=== PATIENT | male | born 1955 | race Caucasian/White ===

== ENCOUNTER 2017-10-25 15:09 | Inpatient (IN) | payer OTHER ==
[~2017-10-25] VITALS: Ht 172.7 cm; Wt 100.0 kg
--- NOTE | ~2017-10-25 | O ---
[facility] [place] [address] OPERATIVE REPORT Name: SUJIT BARROS Room #: 458-P [facility] IN M.R.#: [id number] Admission: 10/25/17 Attend Phys: Yvette Rivera Discharge: 11/09/17 Date of : 51 Report #: [id number] THIS REPORT FOR: //name// CC: Freddy Webber DATE OF SERVICE: 10/29/2017 PREOPERATIVE DIAGNOSIS: Left calcaneal osteomyelitis. POSTOPERATIVE DIAGNOSIS: Left calcaneal osteomyelitis. PROCEDURE: Left below the knee amputation. SURGEON: Derrek Lilly MD. CELERY STRIPPER: Sarah Biswas. ANESTHESIA: General. ESTIMATED BLOOD LOSS: Minimal. DRAINS: One Hemovac drain was placed. TOURNIQUET TIME: One hour. DESCRIPTION OF PROCEDURE: The patient was brought to the operating room where he was placed under general anesthesia. Once under adequate general anesthesia, his left lower extremity was prepped and draped in a sterile manner. The extremity was elevated, exsanguinated and tourniquet placed to 300 mmHg. A fishmouth type incision about the mid portion of the tibia was then made. This was dissected sharply down to the bone on the tibia as well as on the fibula. Any vessels were tagged with hemostats for later ligation. The posterior tibial vessels were isolated and tagged as well. Dissection was then carried down to the bone. The tibia was then transected with a sagittal saw and beveled anteriorly. The fibula was then transected with a sagittal saw on an oblique fashion 2 cm proximal to the tibial cut. Once this was achieved, the amputation was complete. The wound was irrigated copiously. The posterior tibial vessels were ligated. The posterior tibial nerve was incised proximally in the musculature and the peroneal vessels were ligated as well with 0 silk suture. The wound was irrigated copiously and closed with #1 Vicryl in the deep fascia, 2-0 Vicryl in subcutaneous tissues and valente were used for the skin. The wounds were dressed with Xeroform, 4 x 4s, and sterile soft compressive dressing was placed. Tourniquet was let down approximately one hour. There were no [facility] [address] [place] [address] OPERATIVE REPORT Name: SUJIT COCRHAN Room #: 458-P [facility] IN [facility].#: [id number] Admission: 10/25/17 Attend Phys: Yvette Rivera Discharge: 11/09/17 Date of : 51 Report #: [id number] complications from the procedure. The patient tolerated the procedure well and went to recovery room without incident. <ELECTRONICALLY SIGNED> By: Derrek Lilly MD 11/23/17 1235 0838 0855 Derrek Lilly MD /nt
--- NOTE | ~2017-10-25 | 2DMMODE ---
[facility] [address] [place] [address] 2 D/M-MODE ECHOCARDIOGRAM Name: XENIASamiSUJIT TOVAR Room #: 458-P ADM IN M.R.#: [id number] Admission: 10/25/17 Attend Phys: Yvette Whitehead Discharge: Date of : 51 Date of Service: 10/28/17 1639 Report #: [id number] THIS REPORT FOR: //name// APPROVED REPORT Study performed: 10/28/2017 15:26:51 EXAM: Comprehensive 2D, Doppler, and color-flow Echocardiogram Patient Location: Bedside Room #: [facility] Status: routine BSA: 2.17 HR: 78 bpm BP: 137/75 mmHg Rhythm: NSR Other Information Study Quality: Adequate Technically limited study due to body habitus. Indications Pre-Op. Hx: CABG, [place], stent, CVA, DM. Echo Enhancing Agent Indication: Endocardial border delineation Agent(s) / Amount(s) Used: Optison 4 cc 2D Dimensions RVDd: 36.60 mm IVSd: 10.37 (7-11mm) LVOT Diam: 21.74 (18-24mm) LVDd: 54.20 mm PWd: 10.39 (7-11mm) Ascending Ao: 37.08 (22-36mm) LVDs: 41.37 (25-40mm) Aortic Root: 34.97 mm Volumes Left Atrial Volume (Systole) Single Plane 4CH: 58.08 mL Single Plane 2CH: 39.70 mL LA ESV Index: 23.00 mL/m2 Aortic Valve AoV Peak Chintan.: 1.25 m/s AO Peak Gr.: 6.25 mmHg LVOT Max P.59 mmHg LVOT Max V: 1.07 m/s JOSÉ Vmax: 3.18 cm2 [facility] [place] [address] 2 D/M-MODE ECHOCARDIOGRAM Name: SUJIT BARROS LA Room #: 458-P [facility] IN M.R.#: [id number] Admission: 10/25/17 Attend Phys: Yvette Whitehead Discharge: Date of : 51 Date of Service: 10/28/17 1639 Report #: [id number] Mitral Valve E/A Ratio: 0.8 MV Decel. Time: 251.33 ms MV E Max Chintan.: 0.91 m/s MV A Chintan.: 1.11 m/s MV PHT: 72.89 ms IVRT: 72.66 ms Pulmonary Valve PV Peak Chintan.: 1.00 m/s PV Peak Gr.: 4.03 mmHg Pulmonary Vein P Vein S: 0.53 m/s P Vein D: 0.56 m/s P Vein S/D Ratio: 0.95 Tricuspid Valve TR Peak Chintan.: 2.59 m/s TR Peak Gr.: 26.76 mmHg Left Ventricle The left ventricle is normal size. Regional wall motion abnormalities are noted. There is normal left ventricular wall thickness. Left ventricular systolic function is mildly decreased. LVEF is 45%. Mild diastolic dysfunction is present (impaired relaxation pattern). Right Ventricle The right ventricle is normal size. The right ventricular systolic function is normal. Atria The left atrium size is normal. The right atrium size is normal. Aortic Valve The aortic valve is normal in structure. No aortic regurgitation is present. There is no aortic valvular stenosis. Mitral Valve The mitral valve is normal in structure. Trace mitral regurgitation. Tricuspid Valve The tricuspid valve is normal in structure. Trace tricuspid [facility] [address] [place] [address] 2 D/M-MODE ECHOCARDIOGRAM Name: XENIASamiSUJIT Room #: 458-P [facility] IN M.R.#: [id number] Admission: 10/25/17 Attend Phys: Yvette Whitehead Discharge: Date of : 51 Date of Service: 10/28/17 1639 Report #: [id number] regurgitation. Estimated PAP is 27mmHg plus the right atrial pressure. Pulmonic Valve Pulmonic valve is not well visualized. Great Vessels The aortic root is normal in size. The ascending aorta is normal in size. IVC is not well visualized. Pericardium There is no pericardial effusion. <Conclusion> The left ventricle is normal size. There is normal left ventricular wall thickness. Left ventricular systolic function is mildly decreased. Mild diastolic dysfunction is present (impaired relaxation pattern). The right ventricle is normal size. The left atrium size is normal. The aortic valve is normal in structure. Trace mitral regurgitation. There is no aortic valvular stenosis. Trace tricuspid regurgitation. Estimated PAP is 27mmHg plus the right atrial pressure. <ELECTRONICALLY SIGNED> By: Crow Rowe MD 10/28/17 1639 1639 1639 Crow Rowe MD /INF
--- NOTE | ~2017-10-25 | HC ---
[facility] [place] [address] CONSULTATION Name: SUJIT BARROS Room #: 458-P ADM IN M.R.#: [id number] Admission: 10/25/17 Attend Phys: Yvette Rivera Discharge: Date of : 51 Report #: [id number] THIS REPORT FOR: //name// CC: Freddy Webber DATE OF SERVICE: 10/27/2017 CHIEF COMPLAINT: Pressure ulceration to the left heel. HISTORY OF PRESENT ILLNESS: This is a 61-year-old male patient, with a history of diabetes mellitus, who lives at a local senior care, has developed an ulceration on his left posterior heel. It has progressed and become infected. He has been admitted for further evaluation and treatment. I have been asked to see him with regard to wound care. This is the first time I have had a chance to evaluate him. PAST MEDICAL HISTORY: Positive for diabetes mellitus, obesity, previous hernia surgery, previous myocardial infarction. ALLERGIES: None. MEDICATIONS: Include carvedilol, Lipitor, vitamin C, Calmoseptine ointment, Lasix, gentamicin, GlycoLax, Xalatan, lidocaine, Ativan, Mag-Ox, Neurontin, NovoLog, OxyIR, Santyl ointment, senna, Zoloft, Ultram, Desyrel. SOCIAL HISTORY: Negative for alcohol or tobacco use. FAMILY HISTORY: Noncontributory. REVIEW OF SYSTEMS: CONSTITUTIONAL: The patient denies fever, chills or weight loss. NEUROLOGICAL: The patient denies focal weakness. ENT: The patient denies earache, nasal drainage or sore throat. CARDIOVASCULAR: The patient denies chest pain, palpitation or diaphoresis. PULMONARY: The patient denies cough or shortness of breath. GASTROINTESTINAL: The patient denies nausea, vomiting or abdominal pain. ORTHOPEDIC: The patient is aware of the ulceration on his left foot. Other systems in a 14-point review of systems are negative. PHYSICAL EXAMINATION: VITAL SIGNS: At this time includes temperature 37.1, pulse rate 87, respiratory rate of 18, blood pressure 112/65. GENERAL: This is a chronically ill-appearing male patient who appears to be older than his stated age. [facility] [address] [place] [address] CONSULTATION Name: SUJIT BARROS Room #: 458-P [facility] IN M.R.#: [id number] Admission: 10/25/17 Attend Phys: Yvette Rivera Discharge: Date of : 51 Report #: [id number] HEENT: Head normocephalic. Extraocular movements are intact. Nose and throat are clear. NECK: Supple. LUNGS: Clear. HEART: Regular. ABDOMEN: Soft. Bowel sounds present. EXTREMITIES: Demonstrate diminished distal pulses, although he does have reasonably good capillary refill at right foot and ankle. SKIN: Shows intact with a few dry areas. The left heel is examined. There is a very large defect with a large amount of eschar and odor and drainage present. There is very little soft tissue palpable beneath the eschar between that and the calcaneus. LABORATORY DATA: Would include an MRI, which demonstrates slight irregularity to the posterior lateral calcaneus along its superior border at the Achilles insertion. There is also partial tearing of the lateral fibers of the Achilles involving the distal 1.5 cm. This area of erosive change along the calcaneus, abnormal signal extends through the peripheral aspect of the posterior third of the calcaneus felt to represent osteomyelitis correlating with the plain film findings. Soft tissue edema extends throughout the ankle joint and foot with some myositis through the musculature. No fluid collection is seen to suggest abscess. X-ray evaluation of the foot demonstrates lucency and slight irregularity to the cortex along the calcaneus concerning for underlying osteomyelitis, degenerative changes and atherosclerotic calcifications. Lower extremity arterial Doppler demonstrates triphasic waveforms throughout the left lower extremity arterial system. There is minimal elevation of velocity in the proximal right superficial femoral artery without significant stenosis. A sebaceous cyst in the right groin is noted. The upper and mid right lower extremity arterial waveforms appear normal. In the proximal right posterior tibial artery extending inferiorly along the dorsalis pedis area, there is diminished waveforms with collaterals consistent with underlying atherosclerotic disease and more chronic sequela of stenosis. Blood flow is demonstrated in both the posterior tibial and dorsalis pedis arteries. White blood cell count 7.1 with a hemoglobin of 8.8, hematocrit of 25.9, platelet count 303,000. Sodium 140, potassium 3.9, BUN 10, creatinine 1.2 and glucose 74. CRP is markedly elevated at 92. Albumin is 2.1. CLINICAL IMPRESSION: 1. Unstageable pressure ulcer, left heel with wound infection. 2. Calcaneal osteomyelitis. 3. Diabetes mellitus. 4. Mild to moderate peripheral arterial disease. 5. Moderate protein calorie malnutrition. RECOMMENDATIONs: At this point in time, the patient has been examined thoroughly at the bedside. I have reviewed other physician's reports including [facility] [address] [place] [address] CONSULTATION Name: SUJIT BARROS Room #: 458-P ADM IN M.R.#: [id number] Admission: 10/25/17 Attend Phys: Yvette Rivera Discharge: Date of : 51 Report #: [id number] recommendations from orthopedic surgery for below-knee amputation. I have advised him of the same. I think it is highly unlikely that we would be able to overcome this large soft tissue defect as well as the underlying osteomyelitis and preserve the function of his foot. I think ultimately he would be better served and reach a healthier point much quicker and be more functionally ambulatory with the below-knee amputation rather than go through partial calcanectomy. I have discussed with him alternatives to below knee amputation, which I do not recommend, which would include surgical bony debridements and 6-8 weeks of intravenous antibiotics. I was asked by Dr. Webber regarding the possibility of hyperbaric oxygen therapy. The hyperbaric oxygen therapy has been utilized in cases of chronic and refractory osteomyelitis that would be osteomyelitis that has been previously treated with 8 weeks of intravenous antibiotics and surgical bony debridement and then has still failed to resolve. This would be a consideration for down the line, although honestly, I do not feel that this would result in limb preservation. The patient will take current recommendations under advisement and discuss further with his family. We will recommend a Dakin's moist gauze dressing at this time. I do not feel that the local bedside debridement would add any meaningful impact at this point in time. <ELECTRONICALLY SIGNED> By: Mark Bravo MD 10/28/17 1402 49 0007 Mark Bravo MD /nt
--- NOTE | ~2017-10-25 | HC ---
[facility] [place] [address] CONSULTATION Name: SUJIT BARROS Room #: 458-P ADM IN M.R.#: [id number] Admission: 10/25/17 Attend Phys: Yvette Rivera Discharge: Date of : 51 Report #: [id number] THIS REPORT FOR: //name// CC: Freddy Webber CHIEF COMPLAINT: Left heel wound. HISTORY OF PRESENT ILLNESS: This is a 61-year-old gentleman with a history of a left heel wound ongoing over the past 4 months. He was admitted with this heel wound. He has a history of diabetes type 2, on Mcmanus. He is scheduled to have an MRI. He has history of obesity, diabetes, history of hernia surgery, PA in 2010, and a stent in 2001. ALLERGIES: None. MEDICATIONS: Noted on the APR. SOCIAL HISTORY: Negative for tobacco or alcohol use. REVIEW OF SYSTEMS: As above. PHYSICAL EXAMINATION: VITAL SIGNS: Pulse is 84, respiratory rate is 18, blood pressure is 115/57. GENERAL: Awake, alert, cooperative. EXTREMITIES: Examination of the left foot notes a grade 4 ulcer to the left posterior calcaneus with some slight erythema surrounding it. He holds his foot in plantar flexion. He has good capillary refill distally. DATA: Laboratory studies note a white count of 8.8, hemoglobin is 10. Sed rate is 80. X-rays of the foot are reviewed noting the defect in the soft tissue posteriorly. IMPRESSION: Likely calcaneal osteomyelitis. PLAN: He is obtaining an MRI today. I did discuss with him the possibility for a zzips-yjg-xlnw amputation, which he is not wishing to proceed with. We will follow along with you. Thank you for allowing me to participate in the care of this patient. <ELECTRONICALLY SIGNED> By: Derrek Lilly MD 10/29/17 0835 0733 0745 Derrek Lilly MD /nt
--- NOTE | ~2017-10-25 | PATH ---
[facility] [address] [address] [place] [address] PATHOLOGY RPT PROCEDURE Name: FIORELLASUJIT LEVYERT Room #: 458-P ADM IN M.R.#: [id number] Admission: 10/25/17 Date of : 51 Discharge: Report #: [id number] Path Case #: [id number] [facility] Accession Number: [id number] . 01 Material submitted: . LEFT BELOW KNEE AMPUTATION . 01 Clinical history: . Sgggg-dcc-scgz amputation . 02 Diagnosis: Leg, left, below knee amputation: - Ulceration, gangrenous necrosis and marked acute inflammation. - Vessels within subcutaneous tissues showing complete occlusion. - Anterior tibial vasculature showing calcific atherosclerosis with luminal narrowing. - Posterior tibial vessel showing minimal atherosclerosis. - Skin margin viable and unremarkable. - Bone margins grossly viable. (IUV:pit 11/02/2017) QTP/11/02/2017 . 02 Electronically signed: . Marircuz Marquez MD, Pathologist NPI- [id number] . 01 Gross description: . The specimen is received fresh, labeled "Sujit Barros, left below-knee amputation". Received is a left jihgk-yks-mobd amputation measuring 21.5 cm from heel to toe, 15.0 cm from heel to skin margin, 25.6 cm from heel to tibial margin, and 30.1 cm from heel to fibular margin. All five toes are present. The nails are light archibald and flaky to severely thickened in appearance. The skin and soft tissue margin appears viable. Near the skin margin, there is a poorly circumscribed, irregular in contour and pale archibald lesion measuring 0.5 x 0.4 cm. Overlying the calcaneus, there is a poorly circumscribed, irregular in contour, ulcerated to necrotic-appearing lesion measuring 7.5 x 6.6 cm, which is 8.6 cm from the skin margin. Sectioning through the underlying soft tissue reveals yellow-archibald to necrotic dusky wei-brown cut surfaces. On the medial/dorsal aspect of the foot, there is a secondary lesion which is poorly circumscribed, irregular in contour, partially crusted and pale archibald to light brown measuring 1.2 x 1.0 cm. Sectioning reveals a slight amount of necrosis in the underlying soft tissue. The remainder the epidermis is pale archibald and slightly flaky in appearance. The anterior and posterior tibial vasculatures display patent lumens, with a slight amount of calcification present in the anterior tibial vasculature. The specimen is submitted representatively as follows: [place] [address] PATHOLOGY RPT PROCEDURE Name: SUJIT BARROS Room #: 458-P ADM IN M.R.#: [id number] Admission: 10/25/17 Date of : 51 Discharge: Report #: [id number] Path Case #: [id number] . A1 skin and soft tissue margin, to include the aforementioned lesion A2-A3 scheduling representative sections of lesion overlying calcaneus down to the bone A4 entire lesion on medial/dorsal aspect of foot A5 anterior tibial vasculature A6 posterior tibial vasculature. (CAA; 11/01/2017) QAC/QAC . 02 Pathologist provided ICD-10: I70.262, I70.249 . 02 CPT . 519886 Specimen Comment: A courtesy copy of this report has been sent to Specimen Comment: [phone], , . Specimen Comment: Report sent to , and Performed at: [address] [facility], [place] [id number] MD Francesco Vilchis MD Phone: [phone] Performed at: [address] [facility] [id number] MD Maricruz Marquez MD Phone: [phone]
--- NOTE | ~2017-10-25 | EKG ---
[address] [place] [address] ELECTROCARDIOGRAM REPORT Name: XENIASamiSUJIT TOVAR Room #: 458-P ADM IN M.R.#: [id number] Admission: 10/25/17 Attend Phys: Yvette Rivera Discharge: Date of : 51 Report #: [id number] THIS REPORT FOR: //name// [facility] Test Date: 2017-10-28 Test Time: 15:28:06 Pat Name: SUJIT BARROS Department: Room: 458 Gender: M Senior Bi Developer: Radha ABURTO : 1955 Requested By: Moon Barkley Order Number: [id number] MD: Doni Stein Measurements Intervals [place] Rate: 79 P: 44 MS: 181 QRS: -1 QRSD: 102 T: 44 QT: 417 QTc: 479 Interpretive Statements Sinus rhythm Low voltage, extremity leads No previous ECG available for comparison Electronically Signed On 11-01-2017 17:04:12 CDT by Doni Stein [email or web address] <ELECTRONICALLY SIGNED> By: Doni Stein MD 11/01/17 1704 1528 152 Doni Stein MD /IRON
[~2017-10-25 15:09] MED LIST: ADULT LOW DOSE81 MG PO; ALDACTONE50 MG PO; AMBIEN 5 MG TABL5 M1; AMBIEN 5 MG TABL5 M1 PO; BACTRIM DS TAB1 EACH PO; BRILINTA90 MG PO; CARVEDILOL12.5 MG PO; CARVEDILOL6.25 MG PO; COREG PO; CRESTOR10 MG PO; CRESTOR20 MG PO; EFFIENT10 MG PO; GABAPENTIN100 MG PO; GLUCOPHAGE1000 MG PO; HUMALOG100 UNIT/1; HYDROCODONE-AP1 EAC6 PO; LEVEMIR SUBQ; LISINOPRIL2.5 MG PO; LYRICA 50 MG50 MG; MEDROLDOSEPACK PO; NITROGLYCERIN0.4 MG; NITROSTAT0.3 MG SL; NO MEDS; NORCO 5-325 TA1 EACH PO; PAIN & FEVER325 MG PO; SIMVASTATIN40 MG PO; TOUJEO SOL300 UNIT/1; TRAMADOL 50 MG50 MG; VICODIN 5-5001 EACH PO; XANAX 1 MG TABLE1 MG PO
[2017-10-25 17:48] LABS: ABSOLUTE NEUTROPHILS 6.4 thou/uL (1.4-8.2); BASOPHILS 1.4 % (0.0-2.0); EOSINOPHILS 5.8 % (0.0-3.0); LYMPHOCYTES 12.8 % (24.0-44.0); MCH 26.9 pg (26.0-34.0); MCHC 33.3 g/dL (28.0-37.0); MCV 80.8 fL (80.0-100.0); MONOCYTES 7.7 % (1.0-8.0); PLATELET COUNT 332 thou/uL (150-400); POLYS 72.3 % (36.0-66.0); RBC 3.72 mil/uL (4.50-6.00); RDW 16.6 % (10.5-14.5); WBC 8.8 thou/uL (4.0-11.0)
[2017-10-25 17:56] LABS: CALCIUM 9.5 mg/dL (8.5-10.1); CREATININE 1.3 mg/dL (0.7-1.3); POTASSIUM 4.1 mmol/L (3.5-5.1)
[2017-10-25] MEDS ORDERED: LIPITOR80 MG PO (18:21)
[2017-10-25] MEDS ORDERED: VITAMINC500 PO (18:21)
[2017-10-25] MEDS ORDERED: BACTRIM DS TAB1 EACH PO (18:22)
[2017-10-25] MEDS ORDERED: CALMOSEPTINE O3.5 GM TOP (18:23)
[2017-10-25] MEDS ORDERED: LASIX 20 MG TAB20 MG PO (18:24)
[2017-10-25] MEDS ORDERED: GENTAMICIN 0.1%15 G2 TOP (18:25)
[2017-10-25] MEDS ORDERED: GLYCOLAX119 GM PO (18:26)
[2017-10-25] MEDS ORDERED: XALATAN2.5 ML OPHTHALMIC (18:26)
[2017-10-25] MEDS ORDERED: LMX 530 GM TOP (18:27)
[2017-10-25] MEDS ORDERED: UNICOMPLEX M TA1 TA1 PO (18:28)
[2017-10-25] MEDS ORDERED: ATIVAN0.5 MG PO (18:28)
[2017-10-25] MEDS ORDERED: MAGOX 400400 MG PO (18:28)
[2017-10-25] MEDS ORDERED: NEURONTIN 300300 M1 PO (18:29)
[2017-10-25] MEDS ORDERED: NOVOLOG100 UNIT/1 SUBQ (18:30)
[2017-10-25] MEDS ORDERED: OMEPRAZOLE20 M2 PO (18:30)
[2017-10-25] MEDS ORDERED: SANTYL OINTMENT30 G1 TOP (18:31)
[2017-10-25] MEDS ORDERED: OXYCODONE HCL 55 MG PO (18:31)
[2017-10-25] MEDS ORDERED: SELSUN BLUE325 M1 TOP (18:34)
[2017-10-25] MEDS ORDERED: SENNA8.6 MG PO (18:35)
[2017-10-25] MEDS ORDERED: SERTRALINE HCL50 MG PO (18:35)
[2017-10-25] MEDS ORDERED: TRAMADOL 50 MG50 MG PO (18:35)
[2017-10-25] MEDS ORDERED: TRAZODONE HCL50 MG PO (18:36)
[2017-10-25] MEDS ORDERED: VITAMIN D5000 UNIT PO (18:36)
[2017-10-25 22:10] VITALS: BP 118/63
[2017-10-25 22:45] VITALS: BP 133/72
[2017-10-25] MEDS ORDERED: CALMOSEPTINE OI71 GM TOP (23:18)
[2017-10-26 04:18] VITALS: BP 106/57
[2017-10-26 05:09] LABS: GLYCOHEMOGLOBIN (HGB A1C) 5.4 % (4.8-5.6)
[2017-10-26 05:42] LABS: HEMATOCRIT 25.8 % (42.0-52.0); HEMOGLOBIN 8.7 gm/dL (14.0-18.0); MCH 26.9 pg (26.0-34.0); MCHC 33.6 g/dL (28.0-37.0); MCV 80.2 fL (80.0-100.0); RBC 3.22 mil/uL (4.50-6.00); RDW 16.5 % (10.5-14.5); WBC 6.3 thou/uL (4.0-11.0)
[2017-10-26 05:52] LABS: CALCIUM 8.7 mg/dL (8.5-10.1); CREATININE 1.2 mg/dL (0.7-1.3); PHOSPHORUS 3.6 mg/dL (2.5-4.9); POTASSIUM 3.8 mmol/L (3.5-5.1)
[2017-10-26 08:00] VITALS: BP 99/57
[2017-10-26 10:29] LABS: ABSOLUTE RETIC COUNT 0.0714 10^6/uL; OBSERVED RETIC COUNT 2.18 % (0.6-2.6)
[2017-10-26 12:08] LABS: % SATURATION 20 % (20-39); IRON 19 ug/dL (65-175); TIBC 96 ug/dL (250-450)
[2017-10-26 15:54] VITALS: BP 124/65
[2017-10-26 20:00] VITALS: BP 105/50
[2017-10-27 04:00] VITALS: BP 124/58
[2017-10-27 05:55] LABS: ALBUMIN 2.1 g/dL (3.4-5.0); CALCIUM 8.8 mg/dL (8.5-10.1); CREATININE 1.2 mg/dL (0.7-1.3); PHOSPHORUS 3.3 mg/dL (2.5-4.9); POTASSIUM 3.9 mmol/L (3.5-5.1)
[2017-10-27 05:57] LABS: HEMATOCRIT 25.9 % (42.0-52.0); HEMOGLOBIN 8.8 gm/dL (14.0-18.0); MCH 27.2 pg (26.0-34.0); MCHC 34.1 g/dL (28.0-37.0); MCV 79.8 fL (80.0-100.0); RBC 3.25 mil/uL (4.50-6.00); RDW 16.8 % (10.5-14.5); WBC 7.5 thou/uL (4.0-11.0)
[2017-10-27 07:18] VITALS: BP 127/60
[2017-10-27 15:05] VITALS: BP 139/63
[2017-10-27 19:03] VITALS: BP 125/65
[2017-10-28 04:14] VITALS: BP 148/89
[2017-10-28 08:00] VITALS: BP 126/64
[2017-10-28 15:06] VITALS: BP 137/75
[2017-10-28 19:10] VITALS: BP 133/62
[2017-10-29 03:40] VITALS: BP 116/55
[2017-10-29 06:12] LABS: HEMATOCRIT 26.4 % (42.0-52.0); HEMOGLOBIN 9.1 gm/dL (14.0-18.0); MCH 27.7 pg (26.0-34.0); MCHC 34.6 g/dL (28.0-37.0); MCV 80.2 fL (80.0-100.0); RBC 3.29 mil/uL (4.50-6.00); RDW 16.5 % (10.5-14.5); WBC 8.1 thou/uL (4.0-11.0)
[2017-10-29 06:19] LABS: ALBUMIN 2.2 g/dL (3.4-5.0); PHOSPHORUS 3.2 mg/dL (2.5-4.9); POTASSIUM 3.6 mmol/L (3.5-5.1)
[2017-10-29 19:25] VITALS: BP 106/58
[2017-10-30 04:04] VITALS: BP 109/54
[2017-10-30 04:41] LABS: HEMATOCRIT 25.4 % (42.0-52.0); HEMOGLOBIN 8.3 gm/dL (14.0-18.0)
[2017-10-30 04:48] LABS: POTASSIUM 3.8 mmol/L (3.5-5.1)
[2017-10-30 11:11] VITALS: BP 103/53
[2017-10-30 19:58] VITALS: BP 106/63
[2017-10-31 04:05] VITALS: BP 120/57
[2017-10-31 05:39] LABS: HEMATOCRIT 25.2 % (42.0-52.0); HEMOGLOBIN 8.3 gm/dL (14.0-18.0); MCH 26.8 pg (26.0-34.0); MCHC 32.9 g/dL (28.0-37.0); MCV 81.4 fL (80.0-100.0); RBC 3.09 mil/uL (4.50-6.00); RDW 16.6 % (10.5-14.5)
[2017-10-31 05:51] LABS: CALCIUM 8.7 mg/dL (8.5-10.1); POTASSIUM 3.6 mmol/L (3.5-5.1)
[2017-10-31 08:00] VITALS: BP 123/72
[2017-10-31 16:14] VITALS: BP 118/65
[2017-10-31 19:04] VITALS: BP 100/54
[2017-11-01 03:37] VITALS: BP 114/57
[2017-11-01 04:46] LABS: HEMATOCRIT 24.2 % (42.0-52.0); HEMOGLOBIN 7.9 gm/dL (14.0-18.0); MCH 26.4 pg (26.0-34.0); MCHC 32.6 g/dL (28.0-37.0); RBC 2.98 mil/uL (4.50-6.00); RDW 16.8 % (10.5-14.5); WBC 7.5 thou/uL (4.0-11.0)
[2017-11-01 04:54] LABS: ALBUMIN 1.8 g/dL (3.4-5.0); CALCIUM 8.8 mg/dL (8.5-10.1); CREATININE 1.1 mg/dL (0.7-1.3); POTASSIUM 3.7 mmol/L (3.5-5.1); TOTAL BILIRUBIN 0.3 mg/dL (<0.1-1.0); TOTAL PROTEIN 5.8 g/dL (6.4-8.2)
[2017-11-01 08:00] VITALS: BP 120/59
[2017-11-01] MEDS ORDERED: CARVEDILOL12.5 MG PO (14:39)
[2017-11-01 15:56] VITALS: BP 120/63
[2017-11-01 19:42] VITALS: BP 139/68
[2017-11-02 04:51] VITALS: BP 113/67
[2017-11-02 07:33] VITALS: BP 132/70
[2017-11-02 15:31] VITALS: BP 98/62
[2017-11-02 20:43] VITALS: BP 104/58
[2017-11-03 05:04] VITALS: BP 104/71
[2017-11-03 07:40] VITALS: BP 118/73
[2017-11-03 15:13] VITALS: BP 101/54
[2017-11-03 19:25] VITALS: BP 100/49
[2017-11-04 04:36] VITALS: BP 107/53
[2017-11-04 05:20] LABS: HEMATOCRIT 23.8 % (42.0-52.0); MCH 27.3 pg (26.0-34.0); MCHC 33.7 g/dL (28.0-37.0); MCV 81.2 fL (80.0-100.0); RBC 2.94 mil/uL (4.50-6.00); RDW 17.2 % (10.5-14.5); WBC 6.6 thou/uL (4.0-11.0)
[2017-11-04 05:37] LABS: ALBUMIN 1.9 g/dL (3.4-5.0); CALCIUM 8.8 mg/dL (8.5-10.1); CREATININE 1.1 mg/dL (0.7-1.3); MAGNESIUM 1.7 mg/dL (1.8-2.4); POTASSIUM 3.6 mmol/L (3.5-5.1); TOTAL BILIRUBIN 0.3 mg/dL (<0.1-1.0); TOTAL PROTEIN 6.1 g/dL (6.4-8.2)
[2017-11-04 07:26] VITALS: BP 115/66
[2017-11-04 15:46] VITALS: BP 116/55
[2017-11-04 16:12] VITALS: BP 116/55
[2017-11-04 19:16] VITALS: BP 125/55
[2017-11-05 06:08] VITALS: BP 125/55
[2017-11-05 08:08] VITALS: BP 127/74
[2017-11-05 19:50] VITALS: BP 103/52
[2017-11-05 23:39] VITALS: BP 103/52
[2017-11-06 04:15] VITALS: BP 100/52
[2017-11-06 07:30] VITALS: BP 132/61
[2017-11-06 19:33] VITALS: BP 133/74
[2017-11-06 23:43] VITALS: BP 133/74
[2017-11-07 08:00] VITALS: BP 111/60
[2017-11-07 17:00] VITALS: BP 144/89
[2017-11-07 19:15] VITALS: BP 115/63
[2017-11-08 08:00] VITALS: BP 122/62
[2017-11-08] MEDS ORDERED: LANTUS100 UNIT/M SUBQ (09:53)
[2017-11-08 19:22] VITALS: BP 95/56
[2017-11-09 07:36] VITALS: BP 113/54
== END 2017-11-09 13:57 | DRG 853 ==
LOC: ER 15:09 → EROBS 18:25 → 4W 18:25
PROVIDERS: Hospitalist; Nurse Practitioner Family; Orthopaedic Surgery Foot and Ankle Surgery; Physician Assistant
PROC: 0Y6J0Z1 Detachment at Left Lower Leg, High, Open Approach (ICD-10-PCS; principal; 2017-10-29)
DX: A41.9 Sepsis, unspecified organism (principal); E43 Unspecified severe protein-calorie malnutrition; M86.8X8 Other osteomyelitis, other site; L03.90 Cellulitis, unspecified; E11.69 Type 2 diabetes mellitus with other specified complication; D64.9 Anemia, unspecified; F32.9 Major depressive disorder, single episode, unspecified; E78.5 Hyperlipidemia, unspecified; I10 Essential (primary) hypertension; I25.10 Atherosclerotic heart disease of native coronary artery without angina pectoris; S20.20XA Contusion of thorax, unspecified, initial encounter; X58.XXXA Exposure to other specified factors, initial encounter; E11.51 Type 2 diabetes mellitus with diabetic peripheral angiopathy without gangrene; L89.620 Pressure ulcer of left heel, unstageable; E11.621 Type 2 diabetes mellitus with foot ulcer; M53.3 Sacrococcygeal disorders, not elsewhere classified; K59.00 Constipation, unspecified; L98.9 Disorder of the skin and subcutaneous tissue, unspecified; E83.42 Hypomagnesemia; R07.9 Chest pain, unspecified; E66.9 Obesity, unspecified; Z95.5 Presence of coronary angioplasty implant and graft; Z79.82 Long term (current) use of aspirin; Z88.5 Allergy status to narcotic agent; Z95.1 Presence of aortocoronary bypass graft; Z86.73 Personal history of transient ischemic attack (TIA), and cerebral infarction without residual deficits; Y93.89 Activity, other specified; Z79.84 Long term (current) use of oral hypoglycemic drugs; Z79.899 Other long term (current) drug therapy; I25.2 Old myocardial infarction; Y92.89 Other specified places as the place of occurrence of the external cause; Y99.8 Other external cause status; Z68.33 Body mass index [BMI] 33.0-33.9, adult
CPT/HCPCS: 10040; 27000; 50010; 50101; 50386; 51412; 53000; 56524; 56525; 57091; 57180; 62110; 62900; 70005

== ENCOUNTER 2017-12-28 11:45 | Inpatient (IN) | payer OTHER ==
[~2017-12-28] VITALS: Ht 175.3 cm; Wt 98.9 kg
--- NOTE | ~2017-12-28 | O ---
[facility] [place] [address] OPERATIVE REPORT Name: SUJIT BARROS Room #: 419-P ADM IN M.R.#: [id number] Admission: 12/28/17 Attend Phys: Al Draper MD Discharge: Date of : 51 Report #: [id number] THIS REPORT FOR: //name// CC: Al Chinchilla DATE OF SERVICE: 12/29/2017 SURGEON: Rambo Luna MD MIXER WET POUR: None. PREOPERATIVE DIAGNOSES: 1. Unstageable right heel decubitus ulcer. 2. Right groin abscess. POSTOPERATIVE DIAGNOSES: 1. Stage 4 right heel decubitus ulcer. 2. Right groin abscess. 3. Right groin mass. PROCEDURES: 1. Excisional and ultrasonic debridement of right heel decubitus ulcer including skin, subcutaneous tissue, and muscle (5 x 5 cm equals 25 cm2). 2. Incision and drainage of right groin abscess. 3. Excision of right groin subcutaneous mass. ANESTHESIA: General endotracheal anesthesia and local anesthetic. ESTIMATED BLOOD LOSS: 25 mL. SPECIMEN: Right groin mass, right heel tissue. COMPLICATIONS: None appreciated. INDICATIONS FOR PROCEDURE: This is a 62-year-old male patient with history of diabetes mellitus and peripheral vascular disease. He was admitted with worsening right groin pain as well as fever and chills. CT of the pelvis showed a large right groin fluid collection containing gas consistent with an abscess, possible liquified hematoma. In addition, the patient was found to have a right heel decubitus ulcer with associated pain. He presents today for incision and drainage of the right groin abscess as well as debridement of his unstageable right heel decubitus ulcer. OPERATIVE FINDINGS: The right groin abscess contained a moderate amount of purulence. Within the abscess was a cystic structure, the wall of which was [facility] [address] [place] [address] OPERATIVE REPORT Name: SUJIT BARROS Room #: 419-P [facility] IN [facility].#: [id number] Admission: 12/28/17 Attend Phys: Al Draper MD Discharge: Date of : 53 Report #: [id number] excised. Hemoclips were seen deep in the wound, presumably from his previous open inguinal herniorrhaphy. A mesh was not encountered. The patient's right heel wound was 5 cm x 5 cm and extended down to the level of the bone, but did not seem to include bone. Thus, skin, subcutaneous tissue, and muscle was excised. Debridement was carried down to healthy bleeding tissue. DESCRIPTION OF PROCEDURE IN DETAIL: After the risks, benefits and expectations of the operation were discussed in detail with the patient, informed consent was obtained. The patient was identified in the preoperative holding area. He has been receiving scheduled IV antibiotics. He was taken to the operating room and he was placed in the supine position. SCDs were placed on the patient's bilateral lower extremities and pneumatic compression was initiated. The patient was given IV sedation and he was intubated without incident. The right groin and right heel were prepped and draped in a standard sterile fashion. A time-out was performed to identify the correct patient and procedure. Local anesthetic was infiltrated into the skin and subcutaneous tissue in the right groin following the previous incisional scar. A sharp #15 blade scalpel was used to make the incision through the skin. Purulence was already seen draining from the wound. The wound was suctioned and cultures were taken to be sent for aerobes, anaerobes and fungus. The wound was then opened further approximately 6-7 cm in length. While I digitally examined the wound, a cystic structure/cyst wall was present and this was excised to be sent for specimen. No remaining cyst wall appeared to be located within the wound. Hemoclips were present within the wound and these were left in place. Bleeding points were made hemostatic with electrocautery. The wound was then copiously irrigated and suctioned. The Misonix ultrasonic debridement device was used to debride the entire wound cavity. After ensuring hemostasis, the wound was packed with 1:1 Betadine to normal saline on Kerlix. Sterile dressings were applied. The right heel decubitus ulcer was debrided next. Local anesthetic was infiltrated into the skin and subcutaneous tissue. A sharp #10 blade scalpel was used to make an incision around the dry necrotic area. Electrocautery was used to dissect the nonviable tissue away. Dissection was carried down to the calcaneus bone. The outer table was intact and there was no evidence for osteomyelitis grossly. Bleeding points were made hemostatic with electrocautery. The Misonix ultrasonic debridement device was then used to mechanically debride the entire surface area of the wound with good cavitation and a presumed improved bacterial clearance. Bleeding points were again made hemostatic with electrocautery. The wound was then dressed with 1:1 Betadine and normal saline on Kerlix, 4 x 4s, an ABD pad and Kevon wrap. Prior to mechanically debriding the wound, the wound was cultured. The patient tolerated the procedure well. He was awakened, extubated, and taken [address] [address] OPERATIVE REPORT Name: SUJIT BARROS Room #: 419-P [facility] IN M.R.#: [id number] Admission: 12/28/17 Attend Phys: Al Draper MD Discharge: Date of : 53 Report #: [id number] to the recovery room in stable condition with no apparent intraoperative complications. <ELECTRONICALLY SIGNED> By: Rambo Luna MD, FACS 01/04/18 1415 1611 1702 Rambo Luna MD, FACS /nt
--- NOTE | ~2017-12-28 | HC ---
[facility] [place] [address] CONSULTATION Name: SUJIT BARROS Room #: 454-P ADM IN M.R.#: [id number] Admission: 12/28/17 Attend Phys: Al Draper MD Discharge: Date of : 53 Report #: [id number] THIS REPORT FOR: //name// CC: Al Chinchilla DATE OF SERVICE: 12/29/2017 INFECTIOUS DISEASE CONSULTATION ATTENDING PHYSICIAN: Dr. Draper. REASON FOR CONSULTATION: Fever, right groin abscess. HISTORY OF PRESENT ILLNESS: A 62-year-old white man, diabetic for a number of years, who had recently undergone left BKA is admitted with painful swelling, right groin, possibly abscess. History of previous hernia repair with mesh. The patient is scheduled for surgical intervention later today. PAST MEDICAL HISTORY: Diabetes mellitus. Peripheral vascular disease. Left BKA. Right heel decubitus, possible underlying osteomyelitis. Previous CVA, some aphasia. DRUG ALLERGIES: CODEINE, HYDROCODONE. MEDICATIONS: The patient is currently on treatment with vancomycin 1 g IV every 12 hours, Zosyn 3.375 g IV every 8 hours, enoxaparin 40 mg at bedtime, subcutaneous; morphine sulfate 2 mg IV p.r.n., acetaminophen 650 q.i.d. p.r.n., ondansetron 4 mg q.i.d. p.r.n., oxycodone p.r.n., intravenous normal saline. SOCIAL HISTORY: See H and P, old records. FAMILY HISTORY: See H and P, old records. REVIEW OF SYSTEMS: As above. PHYSICAL EXAMINATION: GENERAL: Chronically ill-appearing man, debilitated with wasting of muscle groups of hands. VITAL SIGNS: Temperature 101.3, pulse 117, BP 132/53, respirations 18. Height 5 feet 9 inches, weight 219 pounds. HEENMT: Pupils reactive. Mouth edentulous. NECK: Supple. LUNGS: Clear to auscultation. HEART: S1, S2. No gallop or murmur. ABDOMEN: Soft. Right groin swelling, redness significant point tenderness and [facility] [address] [place] [address] CONSULTATION Name: FIORELLASUJIT TOVAR Room #: 454-P ADM IN ..#: [id number] Admission: 12/28/17 Attend Phys: Al Draper MD Discharge: Date of : 53 Report #: [id number] previous scar of inguinal hernia repair. These findings are compatible with abscess. GENITALIA AND RECTAL: Deferred. EXTREMITIES: Left BKA stump looks fine. The right heel has a decubitus ulceration with black tissue and possible necrosis. NEUROLOGIC: Revealed wasting muscle groups and peripheral neuropathy. LABORATORY DATA: Sodium 136, potassium 3.7, BUN 22, creatinine 1.2, glucose 175, alkaline phosphatase 133, albumin 2.2, CRP 300.6 mg/L. Protime 12.5 seconds. WBC 17,400, hemoglobin 9.6 g/dL, platelets 384,000. ESR is 100 mm per hour. Urinalysis revealed trace protein, 2+ urobilinogen. Cultures are all pending. Previously, on 11/08/2017, had MRSA on scalp lesion. The MRSA had sensitive vancomycin of equal 1 mcg/dL. RADIOLOGY EVALUATION: X-ray of the right foot, gas in the soft tissues adjacent to the fifth proximal following with small calcification foreign bodies in the region and this could represent ulcer or gas. Ill definition of bone of the distal aspect of distal phalanx, fourth toe with bone destruction, infection cannot be excluded obviously. CT scan of abdomen and pelvis revealed right groin abscess. Chest x-ray, mild bibasilar subsegmental atelectasis versus scarring, blunting of left costophrenic cons angle, possible effusion. ASSESSMENT: 1. Right groin abscess, infected mesh. History of inguinal hernia repair with mesh. 2. Right heel decubitus, possible osteomyelitis, right foot. 3. Diabetes mellitus. 4. Anemia. 5. Hypoalbuminemia. 6. Status post left below-knee amputation. 7. Possible osteomyelitis, right foot. SUGGESTIONS: Recommend proceed with surgery, excision of mesh if possible. Continue coverage with vancomycin and Zosyn for time being. Continue to monitor laboratory parameters and intervals to assess for possible antibiotic related toxicities. Dr. Draper, thank you for requesting my suggestions. <ELECTRONICALLY SIGNED> By: Ian Stein MD 12/30/17 0640 0818 0941 Ian Stein MD /nt
--- NOTE | ~2017-12-28 | HC ---
[facility] [place] [address] CONSULTATION Name: SUJIT BARROS Room #: 454-P ADM IN M.R.#: [id number] Admission: 12/28/17 Attend Phys: Al Draper MD Discharge: Date of : 53 Report #: [id number] THIS REPORT FOR: //name// CC: Al Chinchilla CHIEF COMPLAINT: Right heel wound. HISTORY OF PRESENT ILLNESS: The patient is a pleasant 62-year-old gentleman seen today for evaluation of his right heel. He reports roughly 3 weeks ago, a blister developed that later progressed into more of a wound and he sought medical attention afterwards. The patient has had recent admissions for his left lower extremity and underwent a below-knee amputation towards the end of October, per his report; he has been in a stump deposition operator from that. Since his hospitalization, he has also been seen by Dr. Luna and Dr. Bishop of General Surgery and underwent right heel I and D, as well as a right groin I and D. He has been seen by Dr. Stein of Infectious Disease and Dr. Trip Gonzalez of Wound Care. He is on vancomycin and Zosyn. Today, the patient seems somewhat tearful and/or confused on exam of his recent last several months' worth of events. PAST MEDICAL HISTORY: Significant for diabetes, peripheral vascular disease, left below-knee amputation in October of this year, right heel decubitus ulcer, previous CVA, some aphasia. ALLERGIES: CODEINE and HYDROCODONE. MEDICATIONS: Please see current MAR. SOCIAL HISTORY: The patient is , although per chart review, he reports he is going through a divorce. PHYSICAL EXAMINATION: GENERAL: The patient appears to be in no acute distress. He was intermittently tearful and somewhat confused on his prior history. VITAL SIGNS: Most recent vitals: Temperature 36.8, pulse 62, respirations 16, BP 106/61, pulse ox 96%. EXTREMITIES: Right lower extremity reveals a debrided right heel wound. A Kerlix dressing had been removed. There is some surrounding eschar or devascularized tissue around the periphery of the wound. This extends to the muscular layer and fascial layer with the lateral portion of the calcaneus, likely exposed or newly exposed. There appears to be no obvious surrounding redness of the tissues other than the black eschar type rim on the wound edges. No significant drainage is noted. The remainder of the foot is warm with delayed capillary refill. No palpable pulses noted. Mild edema of the leg is present. His left lower extremity has a stump deposition operator on from a prior below-knee amputation. [place] [id number] CONSULTATION Name: FIORELLASUJIT LA Room #: 454-P [facility] IN M.R.#: [id number] Admission: 12/28/17 Attend Phys: Al Draper MD Discharge: Date of : 53 Report #: [id number] LABORATORY DATA: Reviewed. MRI, 12/29/2017, of lower extremity reveals abnormal edema along the posterolateral aspect of the calcaneus in the region of the debridement, likely to represent changes of osteomyelitis as well as mild inflammation in the Achilles. No abnormality within the plantar fascia, and some soft tissue edema and cellulitis. IMPRESSION: 1. 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 2. Multiple medical comorbidities including diabetes and peripheral vascular disease. 3. Recent left below-knee amputation. PLAN: We discussed treatment options with the patient's right heel wound. He has undergone an irrigation and debridement, currently has been seen by Wound Management as well as Infectious Disease. It is the patient's preference at this point to undergo no further surgical intervention. He is not pleased with his progress of functional return following his below-knee amputation on the left side and at this point, wishes to continue with nonoperative management. We discussed potential options including partial calcanectomy versus partial foot amputation and/or below-knee amputation if this worsened or is unable to be managed or controlled. We discussed his multiple medical comorbidities put him at increased risk for further complications and inability to heal and resolve this issue on its own. The patient is aware of this. Nursing staff was present and we will place him in boots to minimize any further heel pressure, elevation of the lower extremity, physical therapy may see and evaluate the patient and then the nursing staff is also going to reconsult [facility] for fitment of temporary prosthesis on the other side. By: 1115 1217 Chauncey Cuevas MD /nt
--- NOTE | ~2017-12-28 | PATH ---
[facility] [place] [address] PATHOLOGY RPT PROCEDURE Name: SUJIT BARROS Room #: 419-P ADM IN M.R.#: [id number] Admission: 12/28/17 Date of : 51 Discharge: Report #: [id number] Path Case #: [id number] [facility] Accession Number: [id number] . 01 Material submitted: . PART A: RIGHT GROIN MASS PART B: RIGHT HEEL WOUND TISSUE . 01 Clinical history: . Right groin infection, right heel decubitus . 02 Diagnosis: A. Right groin mass, debridement: - Fibrinopurulent material, bacterial aggregates, as well as granulation tissue, compatible with debridement. . B. Right heel wound tissue, debridement: - Marked acute inflammation within dense fibrous tissue associated with fibrinoid degeneration, compatible with wound tissue. (IUV/db; 01/03/18) LBQ/01/03/2018 . 02 Electronically signed: . Maricruz Marquez MD, Pathologist NPI- [id number] . 01 Gross description: . A. The specimen is received in formalin, labeled "Sujit Barros, right groin mass". Received are multiple segments of fibromembranous tissue measuring 4.8 x 3.5 x 1.5 cm in aggregate dimensions. The specimen is submitted representatively in cassette A1. . B. The specimen is received in formalin, labeled "Sujit Barros, right heel wound tissue". Received are multiple segments of dusky wei-brown, necrotic-appearing possible skin measuring 5.5 x 3.8 x 1.0 cm in aggregate dimensions. The specimen is submitted representatively in cassette B1. (CAA; 12/31/2017) QAC/QAC . 02 Pathologist provided ICD-10: L89.619 . 02 CPT . 693857, 195586 Specimen Comment: A courtesy copy of this report has been sent to Specimen Comment: [phone], . Specimen Comment: Report sent to / [place] [address] PATHOLOGY RPT PROCEDURE Name: SUJIT BARROS Room #: 419-P ADM IN M.R.#: [id number] Admission: 12/28/17 Date of : 51 Discharge: Report #: [id number] Path Case #: [id number] Specimen Comment: A duplicate report has been generated due to demographic updates. Performed at: [address] [facility], [place], [place] [id number] MD Francesco Vilchis MD Phone: [phone] Performed at: [address] [facility] [id number] MD Maricruz Marquez MD Phone: [phone]
[~2017-12-28 11:45] MED LIST changes: +ATIVAN0.5 MG PO; +CALMOSEPTINE O3.5 GM TOP; +CALMOSEPTINE OI71 GM TOP; +GENTAMICIN 0.1%15 G2 TOP; +GLYCOLAX119 GM PO; +LANTUS100 UNIT/M SUBQ; +LASIX 20 MG TAB20 MG PO; +LIPITOR80 MG PO; +LMX 530 GM TOP; +MAGOX 400400 MG PO; +NEURONTIN 300300 M1 PO; +NOVOLOG100 UNIT/1 SUBQ; +OMEPRAZOLE20 M2 PO; +OXYCODONE HCL 55 MG PO; +SANTYL OINTMENT30 G1 TOP; +SELSUN BLUE325 M1 TOP; +SENNA8.6 MG PO; +SERTRALINE HCL50 MG PO; +TRAMADOL 50 MG50 MG PO; +TRAZODONE HCL50 MG PO; +UNICOMPLEX M TA1 TA1 PO; +VITAMIN D5000 UNIT PO; +VITAMINC500 PO; +XALATAN2.5 ML OPHTHALMIC
[2017-12-28 11:49] VITALS: BP 119/64
[2017-12-28] MEDS ORDERED: TYLENOL325 MG PO (12:14)
[2017-12-28] MEDS ORDERED: DOXYCYCLINE 10100 MG PO (12:16)
[2017-12-28] MEDS ORDERED: IRON325 PO (12:17)
[2017-12-28] MEDS ORDERED: ONDANSETRON HCL4 M2 PO (12:19)
[2017-12-28] MEDS ORDERED: PROSTATE 2.4 C1 EACH PO (12:20)
[2017-12-28] MEDS ORDERED: TRAMADOL 50 MG50 MG PO (12:22)
[2017-12-28] MEDS ORDERED: VITAMIN B COMP1 EACH PO (12:25)
[2017-12-28 12:37] LABS: HEMOGLOBIN 9.5 gm/dL (14.0-18.0); MCH 25.5 pg (26.0-34.0); MCHC 31.9 g/dL (28.0-37.0); MCV 79.9 fL (80.0-100.0); PLATELET COUNT 355 thou/uL (150-400); RBC 3.75 mil/uL (4.50-6.00); WBC 13.9 thou/uL (4.0-11.0)
[2017-12-28 12:44] LABS: CREATININE 1.2 mg/dL (0.7-1.3); POTASSIUM 3.7 mmol/L (3.5-5.1)
[2017-12-28 12:50] LABS: ALBUMIN 2.2 g/dL (3.4-5.0); TOTAL BILIRUBIN 0.7 mg/dL (<0.1-1.0)
[2017-12-28 12:52] LABS: INR 1.2; PROTIME 12.5 Seconds (9.3-11.4)
[2017-12-28 13:27] LABS: ABSOLUTE NEUTROPHILS 10.8 thou/uL (1.4-8.2); ANISOCYTOSIS 1+; PLATELET ESTIMATE NORMAL
[2017-12-28 13:38] VITALS: BP 114/48
[2017-12-28 14:58] LABS: URINE BILIRUBIN NEGATIVE (Negative); URINE BLOOD NEGATIVE (Negative); URINE CLARITY CLEAR; URINE COLOR YELLOW; URINE GLUCOSE-RANDOM* NEGATIVE (Negative); URINE KETONES NEGATIVE (Negative); URINE LEUKOCYTES-REFLEX NEGATIVE (Negative); URINE NITRITE-REFLEX NEGATIVE (Negative); URINE PROTEIN (DIPSTICK) TRACE (Negative); URINE SPECIFIC GRAVITY 1.015 (1.005-1.035)
[2017-12-28 15:07] VITALS: BP 117/60
[2017-12-28 19:59] VITALS: BP 117/60
[2017-12-29 03:59] VITALS: BP 132/53
[2017-12-29 05:56] LABS: HEMATOCRIT 29.7 % (42.0-52.0); HEMOGLOBIN 9.6 gm/dL (14.0-18.0); MCH 25.7 pg (26.0-34.0); MCHC 32.2 g/dL (28.0-37.0); MCV 79.9 fL (80.0-100.0); RBC 3.72 mil/uL (4.50-6.00); WBC 17.4 thou/uL (4.0-11.0)
[2017-12-29 06:04] LABS: CALCIUM 8.9 mg/dL (8.5-10.1); CREATININE 1.3 mg/dL (0.7-1.3); POTASSIUM 3.8 mmol/L (3.5-5.1)
[2017-12-29 07:34] VITALS: BP 116/64
[2017-12-29 16:42] VITALS: BP 109/56
[2017-12-29 17:09] VITALS: BP 114/59
[2017-12-29 19:20] VITALS: BP 113/63
[2017-12-30 03:49] LABS: ABSOLUTE NEUTROPHILS 12.7 thou/uL (1.4-8.2); BASOPHILS 0.2 % (0.0-2.0); HEMATOCRIT 29.4 % (42.0-52.0); HEMOGLOBIN 9.3 gm/dL (14.0-18.0); LYMPHOCYTES 3.8 % (24.0-44.0); MCH 25.7 pg (26.0-34.0); MCHC 31.6 g/dL (28.0-37.0); MCV 81.5 fL (80.0-100.0); MONOCYTES 1.3 % (1.0-8.0); PLATELET COUNT 351 thou/uL (150-400); POLYS 94.7 % (36.0-66.0); RBC 3.61 mil/uL (4.50-6.00); RDW 17.9 % (10.5-14.5); WBC 13.4 thou/uL (4.0-11.0)
[2017-12-30 04:02] LABS: CALCIUM 8.8 mg/dL (8.5-10.1); CREATININE 1.2 mg/dL (0.7-1.3); POTASSIUM 4.6 mmol/L (3.5-5.1)
[2017-12-30 05:20] VITALS: BP 123/64
[2017-12-30 07:55] VITALS: BP 123/52
[2017-12-30 13:58] VITALS: BP 121/62
[2017-12-31 05:41] VITALS: BP 106/61
[2017-12-31 08:43] VITALS: BP 113/63
[2017-12-31 15:10] VITALS: BP 115/63
[2017-12-31 20:17] VITALS: BP 128/63
[2018-01-01 04:36] VITALS: BP 129/62
[2018-01-01 14:59] VITALS: BP 128/65
[2018-01-01 19:36] VITALS: BP 130/63
[2018-01-02 04:33] VITALS: BP 139/76
[2018-01-02 07:44] VITALS: BP 133/75
[2018-01-02 14:23] VITALS: BP 128/61
[2018-01-02 19:45] VITALS: BP 129/71
[2018-01-03 06:02] VITALS: BP 126/56
[2018-01-03 10:46] VITALS: BP 122/62
[2018-01-03 15:00] VITALS: BP 120/71
[2018-01-03 19:11] VITALS: BP 105/49
[2018-01-04 04:00] VITALS: BP 124/62
[2018-01-04 04:57] LABS: HEMATOCRIT 25.8 % (42.0-52.0); HEMOGLOBIN 8.5 gm/dL (14.0-18.0); MCH 26.5 pg (26.0-34.0); MCHC 32.8 g/dL (28.0-37.0); MCV 80.8 fL (80.0-100.0); RBC 3.2 mil/uL (4.50-6.00); RDW 17.5 % (10.5-14.5)
[2018-01-04 05:06] LABS: ALBUMIN 1.8 g/dL (3.4-5.0); CALCIUM 8.5 mg/dL (8.5-10.1); MAGNESIUM 1.5 mg/dL (1.8-2.4); POTASSIUM 3.9 mmol/L (3.5-5.1); TOTAL BILIRUBIN 0.3 mg/dL (<0.1-1.0); TOTAL PROTEIN 5.6 g/dL (6.4-8.2)
[2018-01-04 07:17] VITALS: BP 117/49
[2018-01-04 10:53] LABS: % SATURATION 18 % (20-39); IRON 18 ug/dL (65-175); TIBC 102 ug/dL (250-450)
[2018-01-04 10:57] LABS: OBSERVED RETIC COUNT 2.02 % (0.6-2.6)
[2018-01-04 13:45] VITALS: BP 117/49
[2018-01-04 13:58] VITALS: BP 135/58
[2018-01-04 19:38] VITALS: BP 114/60
[2018-01-05 03:41] VITALS: BP 112/47
[2018-01-05 05:41] LABS: ABSOLUTE NEUTROPHILS 6.9 thou/uL (1.4-8.2); BASOPHILS 0.7 % (0.0-2.0); EOSINOPHILS 4.2 % (0.0-3.0); HEMATOCRIT 25.4 % (42.0-52.0); HEMOGLOBIN 8.3 gm/dL (14.0-18.0); LYMPHOCYTES 12.7 % (24.0-44.0); MCH 26.3 pg (26.0-34.0); MCHC 32.6 g/dL (28.0-37.0); MCV 80.7 fL (80.0-100.0); MONOCYTES 5.7 % (1.0-8.0); PLATELET COUNT 325 thou/uL (150-400); POLYS 76.7 % (36.0-66.0); RBC 3.15 mil/uL (4.50-6.00); RDW 17.7 % (10.5-14.5); WBC 8.9 thou/uL (4.0-11.0)
[2018-01-05 05:46] LABS: HEMATOCRIT 25.8 % (42.0-52.0); HEMOGLOBIN 8.2 gm/dL (14.0-18.0); MCHC 31.9 g/dL (28.0-37.0); MCV 81.3 fL (80.0-100.0); RBC 3.18 mil/uL (4.50-6.00)
[2018-01-05 05:49] LABS: CALCIUM 8.5 mg/dL (8.5-10.1); CREATININE 1.1 mg/dL (0.7-1.3); POTASSIUM 3.6 mmol/L (3.5-5.1)
[2018-01-05 07:30] VITALS: BP 117/57
[2018-01-05] MEDS ORDERED: ROCEPHIN 11 GM/1001 IV (12:59)
[2018-01-05] MEDS ORDERED: OXYCODONE HCL 55 MG PO ×2 (12:59→13:42)
[2018-01-05] MEDS ORDERED: VANCOMYCIN HCL 11 G2 IVPB (12:59)
[2018-01-05] MEDS ORDERED: ASPIRIN81 M2 PO (13:02)
[2018-01-05] MEDS ORDERED: CLOPIDOGREL75 MG PO (13:02)
[2018-01-05] MEDS ORDERED: TRAMADOL 50 MG50 MG PO (13:42)
== END 2018-01-05 17:20 | DRG 901 ==
LOC: ER 11:45 → 4E 13:13 → 4W 13:13 → EROBS 13:13 → 4W 14:53 → 4E 01-03 07:54
PROVIDERS: Hospitalist; Nuclear Medicine Nuclear Cardiology; Nurse Practitioner Family; Physician Assistant
PROC: 0J9C0ZZ Drainage of Pelvic Region Subcutaneous Tissue and Fascia, Open Approach (ICD-10-PCS; principal; 2017-12-29)
PROC: 0KBV0ZZ Excision of Right Foot Muscle, Open Approach (ICD-10-PCS; principal; 2017-12-29)
PROC: 0JBC0ZZ Excision of Pelvic Region Subcutaneous Tissue and Fascia, Open Approach (ICD-10-PCS; principal; 2017-12-29)
PROC: 05HY33Z Insertion of Infusion Device into Upper Vein, Percutaneous Approach (ICD-10-PCS; 2018-01-03)
PROC: B41D1ZZ Fluoroscopy of Aorta and Bilateral Lower Extremity Arteries using Low Osmolar Contrast (ICD-10-PCS; 2018-01-04)
PROC: 04CP3ZZ Extirpation of Matter from Right Anterior Tibial Artery, Percutaneous Approach (ICD-10-PCS; 2018-01-04)
PROC: 047M34Z Dilation of Right Popliteal Artery with Drug-eluting Intraluminal Device, Percutaneous Approach (ICD-10-PCS; 2018-01-04)
PROC: 04CM3ZZ Extirpation of Matter from Right Popliteal Artery, Percutaneous Approach (ICD-10-PCS; 2018-01-04)
PROC: 047P34Z Dilation of Right Anterior Tibial Artery with Drug-eluting Intraluminal Device, Percutaneous Approach (ICD-10-PCS; 2018-01-04)
PROC: B4181ZZ Fluoroscopy of Bilateral Renal Arteries using Low Osmolar Contrast (ICD-10-PCS; 2018-01-04)
DX: T85.79XA Infection and inflammatory reaction due to other internal prosthetic devices, implants and grafts, initial encounter (principal); L89.614 Pressure ulcer of right heel, stage 4; A41.9 Sepsis, unspecified organism; L02.214 Cutaneous abscess of groin; M86.8X7 Other osteomyelitis, ankle and foot; E46 Unspecified protein-calorie malnutrition; E11.51 Type 2 diabetes mellitus with diabetic peripheral angiopathy without gangrene; D64.9 Anemia, unspecified; E11.69 Type 2 diabetes mellitus with other specified complication; L89.610 Pressure ulcer of right heel, unstageable; I25.10 Atherosclerotic heart disease of native coronary artery without angina pectoris; E11.621 Type 2 diabetes mellitus with foot ulcer; L97.519 Non-pressure chronic ulcer of other part of right foot with unspecified severity; K21.9 Gastro-esophageal reflux disease without esophagitis; B96.4 Proteus (mirabilis) (morganii) as the cause of diseases classified elsewhere; B95.4 Other streptococcus as the cause of diseases classified elsewhere; G47.00 Insomnia, unspecified; E78.00 Pure hypercholesterolemia, unspecified; E53.8 Deficiency of other specified B group vitamins; E83.42 Hypomagnesemia; B95.2 Enterococcus as the cause of diseases classified elsewhere; B95.62 Methicillin resistant Staphylococcus aureus infection as the cause of diseases classified elsewhere; Y83.8 Other surgical procedures as the cause of abnormal reaction of the patient, or of later complication, without mention of misadventure at the time of the procedure; Y92.89 Other specified places as the place of occurrence of the external cause; I69.320 Aphasia following cerebral infarction; I25.2 Old myocardial infarction; Z68.32 Body mass index [BMI] 32.0-32.9, adult; Z95.1 Presence of aortocoronary bypass graft; Z95.5 Presence of coronary angioplasty implant and graft; Z89.512 Acquired absence of left leg below knee; Z79.4 Long term (current) use of insulin; Z79.899 Other long term (current) drug therapy; Z88.5 Allergy status to narcotic agent; Z88.8 Allergy status to other drugs, medicaments and biological substances
CPT/HCPCS: 10045; 10047; 10783; 27000; 50010; 50101; 50386; 50403; 57119; 57120; 62110; 62900; 70005

== ENCOUNTER 2018-02-09 11:09 | Inpatient (IN) | payer OTHER ==
[~2018-02-09] VITALS: Ht 175.3 cm; Wt 90.2 kg
--- NOTE | ~2018-02-09 | HC ---
[facility] [place] [address] CONSULTATION Name: SUJIT BARROS Room #: 464-P ADM IN M.R.#: [id number] Admission: 02/09/18 Attend Phys: Viet Vargas MD Discharge: Date of : 53 Report #: [id number] THIS REPORT FOR: //name// CC: Freddy Vargas DATE OF SERVICE: 02/11/2018 HISTORY OF PRESENT ILLNESS: The patient is a 62-year-old white male with history of insulin-dependent diabetes mellitus, prior CVA with residual right-sided weakness on 02/2017. His course was complicated by a left below knee amputation from 10/26/2017. He has been staying at [facility]. Apparently after receiving some rehabilitation prior, his course has been further complicated by a right nonhealing heel wound, which is full thickness with necrosis to the bone. He has been seen by Wound Care here as well as Orthopedics and the plan is to undergo a matching below knee amputation of the right lower extremity later today. We are seeing him in rehabilitation medicine consultation. PAST MEDICAL HISTORY: Includes insulin-dependent diabetes mellitus, hypertension, hyperlipidemia, peripheral arterial disease. He has had right groin abscess. He has had stentings for his peripheral arterial disease. He has had coronary bypass grafting x 2 and inguinal hernia repair. ALLERGIES: CODEINE AND HYDROCODONE. MEDICATIONS: Please see the full medication listing. This includes vitamins, herbals, and supplements. HABITS: No history of tobacco or alcohol abuse. SOCIAL HISTORY: He had been living with his and he wants to return back home with his and their 11-year-old child. Apparently, there are 12 steps into the house. REVIEW OF SYSTEMS: Frustrated with upcoming amputation. No current chest pain, shortness of breath or abdominal discomfort. He does complain of some hand numbness and weakness, notes it is more in the right. PHYSICAL EXAMINATION: GENERAL: A 62-year-old white male in no obvious distress. VITAL SIGNS: Last recorded temperature 99, pulse 80, respirations 17 and blood pressure 123/73. He is alert, pleasant, oriented. HEENT: Appeared to be benign. NEUROLOGIC: Cranial nerves grossly intact. Functional range of motion of the upper extremities. He has evidence of significant thenar and intrinsic atrophy [address] [address] CONSULTATION Name: SUJIT BARROS Room #: 464-P [facility] IN M.R.#: [id number] Admission: 02/09/18 Attend Phys: Viet Vargas MD Discharge: Date of : 53 Report #: [id number] of both distal upper extremities with some decreased bundle packer, more on the right than the left. He has decreased fine finger dexterity on the right more than the left. In his lower extremities, he has the left below knee amputation. The residual limb distal stump appears to be very well healed and he has good range of motion at that left knee. Right lower extremity, no obvious focal weakness. He is to have surgery later as noted. Functionally, he has been standing in the parallel bars with his prosthesis that he just obtained approximately 4 days ago per the patient's history. ASSESSMENT: A 62-year-old white male with the following problem list: 1. Right nonhealing heel wound, full thickness with necrosis of the bone to undergo below-knee amputation later today. 2. Prior left below knee amputation on 10/26/2017. 3. Premorbid cerebrovascular accident on 02/25 with some residual right-sided weakness. 4. Peripheral neuropathy with evidence of intrinsic atrophy, bilateral hands. 5. Insulin-dependent diabetes mellitus. 6. Hypertension. 7. Peripheral arterial disease. 8. Hyperlipidemia. PLAN: As noted above, it is my understanding that the patient has an insurance, which is outside of our network. Insurance options will need to be checked regarding further rehab therapy options as he further stabilizes post-surgically We will be glad to follow along with you in the meantime. By: 1106 1123 Benjamin Hanson MD /nt
[~2018-02-09 11:09] MED LIST changes: +ASPIRIN81 M2 PO; +CLOPIDOGREL75 MG PO; +DOXYCYCLINE 10100 MG PO; +IRON325 PO; +ONDANSETRON HCL4 M2 PO; +PROSTATE 2.4 C1 EACH PO; +ROCEPHIN 11 GM/1001 IV; +TYLENOL325 MG PO; +VANCOMYCIN HCL 11 G2 IVPB; +VITAMIN B COMP1 EACH PO
[2018-02-09 11:10] VITALS: BP 116/57
[2018-02-09 12:01] LABS: ABSOLUTE NEUTROPHILS 4.7 thou/uL (1.4-8.2); BASOPHILS 0.4 % (0.0-2.0); EOSINOPHILS 7.3 % (0.0-3.0); HEMOGLOBIN 9.2 gm/dL (14.0-18.0); MCHC 32.8 g/dL (28.0-37.0); MCV 79.3 fL (80.0-100.0); PLATELET COUNT 268 thou/uL (150-400); POLYS 73.3 % (36.0-66.0); RBC 3.52 mil/uL (4.50-6.00); RDW 17.7 % (10.5-14.5); WBC 6.3 thou/uL (4.0-11.0)
[2018-02-09 12:03] LABS: CALCIUM 9.4 mg/dL (8.5-10.1); CREATININE 1.2 mg/dL (0.7-1.3); POTASSIUM 4.3 mmol/L (3.5-5.1)
[2018-02-09] MEDS ORDERED: TRAZODONE HCL50 MG PO (14:42)
[2018-02-09 16:39] VITALS: BP 99/49
[2018-02-09 18:06] VITALS: BP 125/61
[2018-02-09 18:30] VITALS: BP 119/63
--- NOTE | 2018-02-09 18:46 | NUR ---
ADM PT CAME IN FROM ER. PT ORIENTED TO ROOM. ADM WOUND PHOTO ATTACHED TO CHART.
[2018-02-10 04:36] VITALS: BP 99/53
--- NOTE | 2018-02-10 04:41 | NUR ---
ASSUMED CARE AT START OF SHIFT PT ,DATA BASE AND ASSESSSMENT COMPLETED DUE TO ARRIVING NEW ADMIT FROM ED. DRESSING CLEAN DRY AND INTACT, PAIN MEDICATION GIVEN PRESCRIBED, DISCUSSED PLAN OF CARE, VRBALIZED UNDERSTANDING AND AGREEABLE.
[2018-02-10 08:17] VITALS: BP 107/54
--- NOTE | 2018-02-10 10:00 | NUR ---
JARETH VISITED WITH PT AT BEDSIDE, HE IS A & O X 3, FLAT AFFECT, AND ABLE TO MAKE HIS NEEDS KNOW. INTRO TO CM, DCP, TRANSITION OF CARE, POST ACUTE AND LTC. PT PREFERRS TO GO BY SUJIT, HE REPORTED " BEEN AT [facility] FOR YEAR, HAD STROKE WENT FOR REHAB, THEN HAD LEG CUT OFF. JUST GO PROSTHESIS 4 DAYS AGO. I CAN FEED MYSELF, USE OF WHEEL CHAIR JUST NOW GOING TO GET TO START WORKING WITH THERAPY FOR LEG. PT HAD LEFT BKA. CAN TALK WITH MY KEARA. DON'T WANT TO GO BACK THERE. IS NO SERVICE FOR CARE. THEY CANT KEEP STAFF"/SUJIT. EDUCATION ON SOMETIMES IT IS HARD TO FIND NEW ACCEPTING FACILITY PRIOR TO DC, INFORMATION CAN BE PASSED ON AND FACILITY SW CAN HELP ASSIST WITH FINDING NEW FACILITY FOR REHAB AND POSSIBLE LTC. " I JUST DO NOT WAN TO GO BACK, WOULD LIKE TO GO HOME"/SUJIT. JARETH PROVIDED ACTIVE LISTENING DURING VISIT. PT CO OF HAVING COLD BREAKFAST AND THAT HE DID NOT GET MENU. DIETARY STAFF WAS THERE TO MOTION PICTURE CAMERAMAN BREAKFAST TRAY, ENCOURAGE PT TO LET STAFF GET HIM SOMETHING ELSE TO EAT AND HE STATED " NO"/SUJIT. DIETARY STAFF BROUGHT HIM LUNCH MENU. JARETH PASSED ON INFORMATION RT BREAKFAST TO BEDSIDE NURSE. JARETH SPOKE WITH PT KEARA " THANK YOU FOR CALL, I WILL BE UP TO SEE HIM SOON. HE NEVER WANTS TO BACK BUT WITH HIS INSURANCE IT HARD TO FIND A PLACE THAT ACCEPTS [facility]."/KEARA. WILL CONT FOLLOWING NEEDED FOR DC NEEDS.
--- NOTE | 2018-02-10 14:46 | NUR ---
WOUND CONSULT: PT. WAS SEEN TODAY BY DR. STALEY AND MYSELF. PT. IS WELL KNOWN TO THE WOUND CARE TEAM. PT. HAS AN UNSTAGABLE PRESSURE ULCER TO HIS RIGHT HEEL. BONE IS EXPOSED AT THIS POINT. PT. UNDERWENT A LEFT BKA IN 2017. DR. BERGER PREFORMED THE PREVIOUS BKA AND HAS BEEN CONSULTED AGAIN TO SEE THIS PT. FOR EVALUATION OF THE RIGHT HEEL. RECOMMENDATIONS: WOUND CARE TO RIGHT HEEL: GENTLY CLEANSE AREA WITH WOUND CLEANSER OR NORMAL SALINE, PACK WITH DAKIN SOAKED KERLIX, COVER WITH ABD, SECURE WITH TAPE, COMPLETE CARES DAILY. TURN Q2 HOURS KEEP PT. OFF WOUNDS MUCH POSSIBLE KEEP ON CORBY MATRESS. PT. AND STAFF NURSE WERE INSTRUCTED ON WOUND CARE.
[2018-02-10 16:38] VITALS: BP 109/52
[2018-02-10 19:40] VITALS: BP 112/56
--- NOTE | 2018-02-10 20:35 | NUR ---
ASSUMED CARE OF PT AT APPROX 0700. PT IS ALERT AND ORIENTED X4, NOT MONITORED ON TELE, ABLE TO MAINTAIN 02 SAT >90 ON RA. DENIES PAINA ND SOA. EVEN NON LABORED BREATHING. ASSESSMENT CHARTED. ORTHO CALLED AND SAID THEY WOULD BE BY TO SAY PATIENT LATE TOMORROW AM, BUT PT NEEDS TO BE MADE NPO AFTER MIDNIGHT AND TO BE TOLD THAT HE WILL BE HAVINGA R BKA TOMORROW. ORTHO ALSO ASKED FOR PRIMARY HOSPITALIST TO BE CONTACTED TOMORROW MORNING FOR SURGERY CLEARANCE. PT WAS EDUCATED AND ADVISED OF PLAN FOR SURGERY TOMORROW AND IS NOT IN AGREEMENT WITH PLAN. PT DOES WANT TO TALK TO SURGEON BEFORE HAND AND IS VERY SURE HE IS NOT GOING TO FOLLOW THROUGH WITH SURGERY. EDUCATED PT MORE ON THE IMPORTANCE OF BEING PROPERLY EDUCATED HAVING QUESTIONS ANSWERED THOROUGHLY AND MAKING SURE HE MAKES INFORMED DECISIONS. PT VERY UPSET. STAYED AND TALKED WITH PATIENT. ANSWERED MANY QUESTIONS POSSIBLE. PAGED ORTHO TO LET THEM KNOW PATIENT REFUSING OF RIGHT NOW. NO CALL BACK YET. NIGHT RN UPDATED. PT MAKING POOR PROGRESS TOWARDS POC.
[2018-02-11 04:53] VITALS: BP 126/56
--- NOTE | 2018-02-11 05:04 | NUR ---
VERBALIZED FEELINGS OF SEVERE DEPRESSION, FRUSTRATION REGARDING POSSIBLE AMPUTATION OF RIGHT LEG 02/11/18. PATIENT HAS BEEN NPO SINCE MIDNIGHT. ORTHO SURGEON WILL SEE HIM IN THE MORNING. OFFERED EXTENSIVE EMOTIONAL SUPPORT, GOOD RESPONSE FROM PATIENT. GIVEN TRAMADOL FOR PAIN, EFFECTIVE RELIEF VERBALIZED.
[2018-02-11 05:42] LABS: ABSOLUTE NEUTROPHILS 4.1 thou/uL (1.4-8.2); BASOPHILS 0.8 % (0.0-2.0); EOSINOPHILS 10.7 % (0.0-3.0); HEMATOCRIT 25.7 % (42.0-52.0); HEMOGLOBIN 8.4 gm/dL (14.0-18.0); LYMPHOCYTES 16.7 % (24.0-44.0); MCH 26.1 pg (26.0-34.0); MCHC 32.6 g/dL (28.0-37.0); MCV 80.1 fL (80.0-100.0); MONOCYTES 8.3 % (1.0-8.0); PLATELET COUNT 234 thou/uL (150-400); POLYS 63.5 % (36.0-66.0); RBC 3.21 mil/uL (4.50-6.00); RDW 18.4 % (10.5-14.5); WBC 6.5 thou/uL (4.0-11.0)
[2018-02-11 05:58] LABS: CALCIUM 8.8 mg/dL (8.5-10.1); CREATININE 1.1 mg/dL (0.7-1.3); MAGNESIUM 1.5 mg/dL (1.8-2.4); POTASSIUM 4.3 mmol/L (3.5-5.1)
[2018-02-11 08:20] VITALS: BP 123/73
--- NOTE | 2018-02-11 10:17 | HC ---
[facility] [place] [address] CONSULTATION Name: SUJIT BARROS Room #: 464-P ADM IN M.R.#: [id number] Admission: 02/09/18 Attend Phys: Viet Vargas MD Discharge: Date of : 51 Report #: [id number] THIS REPORT FOR: //name// CC: Freddy Vargas DATE OF SERVICE: 02/10/2018 ATTENDING PHYSICIAN: Danny Lockwood MD. REASON FOR CONSULTATION: Right heel decubitus. HISTORY OF PRESENT ILLNESS: The patient is a 62-year-old white man with multiple medical problems including diabetes mellitus, hypertension, coronary artery disease, previous CABG, left BKA, previous infection with MRSA with an abscess of the right groin that was incised and drained by Dr. Luna on 12/28/2017. The patient also at that point in time had an unstageable decubitus, right heel from which Proteus was isolated. The patient has received treatment with vancomycin and Zosyn now and he does complain of some pain on the right foot. DRUG ALLERGIES: CODEINE, HYDROCODONE. MEDICATIONS: The patient is on Plavix 75 mg p.o. daily, enoxaparin 40 mg subQ at bedtime, magnesium oxide 400 mg p.o. b.i.d., latanoprost 1 mL at bedtime ophthalmic, gabapentin 300 mg p.o. at bedtime, atorvastatin 80 mg at bedtime, vancomycin 1250 mg IV daily, p.r.n. tramadol, p.r.n. glucose, p.r.n. glucagon. PAST MEDICAL HISTORY: Diabetes mellitus for a number of years with its multiple complications that have included peripheral vascular disease requiring left foot BKA. Previous right groin MRSA abscess. Peripheral neuropathy. Chronic nonhealing right heel decubitus. SOCIAL HISTORY: See H and P, old records. FAMILY HISTORY: See H and P, old records. REVIEW OF SYSTEMS: See H and P and as above. PHYSICAL EXAMINATION: GENERAL: A well-developed, not toxic looking man, chronically ill-appearing. VITAL SIGNS: Temperature 97.9, pulse 58, respirations 18, BP 107/54. HEENMT: Head normocephalic, atraumatic. Pupils reactive. Mouth edentulous. NECK: Supple, no thyromegaly. LUNGS: Clear to auscultation. HEART: S1, S2. No gallop or murmur. [address] [address] CONSULTATION Name: SUJIT BARROS Room #: 464-P ADM IN M.R.#: [id number] Admission: 02/09/18 Attend Phys: Viet Vargas MD Discharge: Date of : 51 Report #: [id number] ABDOMEN: Soft, no masses or megaly. GENITALIA AND RECTAL: Deferred. EXTREMITIES: A stage 4 right heel decubitus, remote left BKA. LABORATORY DATA: Sodium 141, potassium 4.3, BUN 25, creatinine 1.2, glucose 114. WBC 6.3, hemoglobin 9.2, platelets 268,000. MICROBIOLOGY DATA: Blood and foot cultures were obtained, they are pending at the time of this dictation. In 12/2017, culture of the right heel decubitus revealed Proteus mirabilis sensitive to ceftriaxone. The groin abscess revealed Enterococcus faecalis, Finegoldia magna and methicillin-resistant Staphylococcus aureus. RADIOLOGY EVALUATION: CT scan of the right lower extremity revealed large soft tissue defect on the heel with erosion down to the cortical bone and ill definition of underlying cortical bone suggesting chronic osteomyelitis, right heel. ASSESSMENT: 1. Dry heel stage 4 decubitus with underlying osteomyelitis. 2. Diabetes mellitus with peripheral neuropathy. 3. Anemia of chronic disease. 4. Remote amputation, left lower extremity. 5. History of polymicrobic abscess, right groin, status post I and D. SUGGESTIONS: Recommend continue treatment with vancomycin to cover the previously isolated MRSA very likely causing infection of the bone and since he had Proteus mirabilis, we will treat with Rocephin 1 gram IV daily. The patient may benefit from BKA again. Dr. Lockwood, thank you for requesting my suggestions. <ELECTRONICALLY SIGNED> By: Ian Stein MD 02/11/18 1017 [id number] Ian Stein MD /nt
--- NOTE | 2018-02-11 11:02 | NUR ---
WOUND FOLLOW UP: PT. WAS SEEN TODAY BY DR. STALEY AND MYSELF. DR. STALEY HAD A LONG DISCUSSION WITH PT. TODAY REGARDING RISK AND BENIFITS OF SURGICAL INTERVENTION OF THE WOUND ON HIS RIGHT HEEL. AFTER MUCH CONVERSATION PT. WAS AGREEABLE TO GO TO THE OR AND HAVE FURTHER DISCUSSION WITH THE SURGEON. RECOMMENDATIONS: CONTINUE WITH CURRENT PLAN OF CARE. PT. AND STAFF NURSE WERE INSTRUCTED ON PLAN OF CARE.
[2018-02-11 15:47] VITALS: BP 112/53
--- NOTE | 2018-02-11 16:55 | NUR ---
POST OP RIGHT BKA, A/O X4, PAIN MANAGAGED WITH MEDICATIONS, DRESSING CLEAN DRY AND INTACT, DECLINES ICE PACK AND ELEVATION OF RIGHT LE. REQUEST ACCEPTED FOR HYDROMORPHONE FOR PAIN. VSS. ABLE TO MAKE NEEDS KNOWN. CALL IGHT IN REACH.
[2018-02-11 18:09] VITALS: BP 126/67
[2018-02-11 18:11] VITALS: BP 122/61
[2018-02-11 20:56] VITALS: BP 113/64
[2018-02-12 04:31] VITALS: BP 129/71
[2018-02-12 05:21] LABS: HEMATOCRIT 28.1 % (42.0-52.0)
[2018-02-12 08:00] VITALS: BP 106/68
--- NOTE | 2018-02-12 08:11 | NUR ---
PROGRESS PT SLEPT MOST OF SHIFT TRAMADOL GIVEN FOR PAIN WITH EFFECT AND DILAUDID NEEDED, DRESSING TO RLE C/D/I STUMP CHECKER LOADER IN PLACE ON LEFT PT APPEARS VERY DEPRESSED DOESNT MAKE EYE CONTACT AND GIVES SHORT ABRUPT ANSWERS CONTINUE TO MONITOR.
[2018-02-12 15:00] VITALS: BP 103/56
--- NOTE | 2018-02-12 16:26 | NUR ---
A/OX4, PAIN MANAGED WITH MEDICATIONS, HEMOVAC REMOVED PER ORDERS, VSS, IRRITABLE TOWARDS STAFF, DECLINED THERAPY. CALLS FOR ASSISTANCE. SELF REPOSTIONS. DRESSING CLEAN DRY INTACT, ENCOURAGE ELEVATING LIMP. CALL LIGHT IN REACH.
[2018-02-12 19:46] VITALS: BP 117/61
--- NOTE | 2018-02-13 03:18 | NUR ---
PT RESTED THROUGH MOST OF THE NIGHT PT USED CALL LIGHT EFFECTIVELY PT GIVEN IV DILAUDED FOR PAIN VS STABLE.
[2018-02-13 05:01] VITALS: BP 117/69
[2018-02-13 05:42] LABS: ABSOLUTE NEUTROPHILS 7.9 thou/uL (1.4-8.2); BASOPHILS 0.9 % (0.0-2.0); HEMATOCRIT 26.8 % (42.0-52.0); HEMOGLOBIN 8.7 gm/dL (14.0-18.0); LYMPHOCYTES 9.1 % (24.0-44.0); MCH 26.2 pg (26.0-34.0); MCHC 32.6 g/dL (28.0-37.0); MCV 80.4 fL (80.0-100.0); MONOCYTES 6.3 % (1.0-8.0); PLATELET COUNT 231 thou/uL (150-400); POLYS 77.7 % (36.0-66.0); RBC 3.34 mil/uL (4.50-6.00); RDW 18.3 % (10.5-14.5); WBC 10.1 thou/uL (4.0-11.0)
[2018-02-13 07:36] VITALS: BP 125/73
[2018-02-13 16:26] VITALS: BP 136/70
--- NOTE | 2018-02-13 19:22 | NUR ---
PT STABLE THROUGHOUT SHIFT. PT C/O PAIN, MEDS RELIEVED. PT RESTING COMFORTABLY, WILL CONTINUE TO MONITOR.
[2018-02-13 21:36] VITALS: BP 111/53
[2018-02-14 06:32] VITALS: BP 113/62
--- NOTE | 2018-02-14 08:24 | NUR ---
PROGRESS PT NOT FLAT PRIOR SHIFT. MORE VERBAL AND PERSONABLE. REQUESTED PAIN MEDS BEFORE BED DILAUDID AND TRAMADOL GIVEN WITH EFFECT, TYLENOL ALSO GIVEN FOR SLIGHT TEMP OF 99.1 AND ADDED COMFORT MEASURE. PT SLEPT ALL NIGHT WOKE AND STATED HE HADN'T SLEPT THAT WELL IN A WHILE. CONTINUE TO MONITOR.
[2018-02-14 08:31] VITALS: BP 101/50
--- NOTE | 2018-02-14 09:58 | NUR ---
DP SENT REFERRAL TO [facility], VON/JARETH INGRAM ALREADY TEXTED LINDSEY AT FACILITY TO LET HER KNOW TO EXPECT FAX. LINDSEY IS ALSO COMING TO SEE PATIENT TODAY.
--- NOTE | 2018-02-14 10:10 | NUR ---
PT'S INSURANCE IS OUT OF NETWORK FOR 5N. [facility] TO ASSESS PT FOR POSSIBLE ADMISSION. CM TO FOLLOW INDICATED WITH DC PLANNING.
--- NOTE | 2018-02-14 13:50 | NUR ---
FAXED CLINICAL UPDATE TO [facility] SPOKE WITH [facility] IN ADM. AND SHE RECEIVED UPDATE. DCP TO FOLLOW.
--- NOTE | 2018-02-14 14:58 | NUR ---
ASSUMED CARE AT 0700. AXOX4. S/P R BKA. DRESSING DRY AND INTACT. PAIN MANAGED WITH DILAUDID. ACCUCHECK CHANGED FROM PC MEALS TO AC MEALS. NO S/S ACUTE DISTRESS NOTED OR RERPORTED AT THIS TIME. WILL CONT TO MONITOR FOR ANY CHANGES OR PROGRESS.
--- NOTE | 2018-02-14 16:39 | NUR ---
WOUND FOLLOW UP: PT. WAS SEEN TODAY BY DR. MARI AND MYSELF. PT. SURGICAL INCSION IS WELL APPROXIMATED. RECOMMENDATIONS: CONTINUE WITH CURRENT PLAN OF CARE. PT. AND STAFF NURSE WERE INSTRUCTED ON WOUND CARE.
[2018-02-14 17:08] VITALS: BP 106/58
[2018-02-14 19:17] VITALS: BP 84/36
[2018-02-15 04:02] VITALS: BP 104/60
[2018-02-15 07:30] VITALS: BP 111/55
--- NOTE | 2018-02-15 09:49 | HC ---
[facility] [place] [address] CONSULTATION Name: SUJIT BARROS Room #: 460-P ADM IN M.R.#: [id number] Admission: 02/09/18 Attend Phys: Viet Vargas MD Discharge: Date of : 53 Report #: [id number] THIS REPORT FOR: //name// CC: Freddy Vargas DATE OF SERVICE: 02/10/2018 PERSONAL PHYSICIAN: None on staff. CHIEF COMPLAINT: Right heel ulceration with osteomyelitis. HISTORY OF PRESENT ILLNESS: This is a 62-year-old white male with history of previous left heel osteomyelitis and then subsequent below the knee amputation. The patient states several months ago, he started having right heel ulceration develop. It seemed to get worse, started to have a foul odor and the patient was [facility] from his [facility] to [facility] Emergency Department where they diagnosed he was having osteomyelitis of the heel and was admitted for IV antibiotics and surgical consultation. We have been asked to follow the patient as well for preop and postop wound care. The patient states that his qmdhd-crg-mekb amputation stump site has healed well. The patient also has a history of peripheral arterial disease, which has been treated previously with stents. The patient denies any other associated wounds at this time. PAST MEDICAL HISTORY: Significant for insulin-dependent diabetes, hypertension, hyperlipidemia, peripheral arterial disease, previous left heel osteomyelitis now status post left BKA, history of CVA in February 2017 which left him with left lower extremity weakness. CURRENT MEDICATIONS: Multiple, I reviewed the patient's medication list. DRUG ALLERGIES: CODEINE and HYDROCODONE. SOCIAL HISTORY: The patient states he has never been a smoker. Denies alcohol use. FAMILY HISTORY: Not pertinent to current medical condition. REVIEW OF SYSTEMS: CONSTITUTIONAL: The patient denies fevers or chills. NEUROLOGIC: The patient denies numbness, tingling, weakness in arms or legs. EYES: No complaints. ENT: No complaints. CARDIAC: The patient denies chest pain, palpitations, peripheral edema. RESPIRATORY: The patient denies shortness of breath, cough or wheezes. GASTROINTESTINAL: The patient denies nausea, vomiting or abdominal pain. [facility] [address] [place] [address] CONSULTATION Name: SUJIT BARROS Room #: 460-P [facility] IN M.R.#: [id number] Admission: 02/09/18 Attend Phys: Viet Vargas MD Discharge: Date of : 51 Report #: [id number] GENITOURINARY: The patient denies urgency or frequency. MUSCULOSKELETAL: No complaints. SKIN: There is a large ulceration on his right calcaneal region with exposed bone. PHYSICAL EXAMINATION: VITAL SIGNS: Temperature 36.8, pulse 71, respirations 16, BP 112/56. GENERAL: Alert and oriented x 3, pleasant, chronically ill-appearing white male who is in no acute distress. HEENT: Normocephalic, atraumatic. Mucous membranes are dry. Pupils are round. NECK: Supple, nontender, without JVD. LUNGS: Clear. HEART: Regular. ABDOMEN: Soft, otherwise nontender. EXTREMITIES: The patient has a vzwpi-gzw-ozsx amputation on the left, which is well healed with no ulcerations on the right lower extremity. There is a faint to 1+ dorsalis pedis pulse and 1+ posterior tibial pulse with large ulceration on the posterior calcaneal region, but is basically 100% slough with exposed bone. Periwound is somewhat macerated. There is a moderate amount of seropurulent drainage, which is mild odor. The rest of the right foot is without open ulcerations. NEUROLOGIC: Cranial nerves 2-12 are grossly intact. Motor and sensory are grossly intact. Arterial Doppler of the right lower extremity shows no flow limiting stenosis in the right lower extremity. CT scan of the right heel shows large posterior lateral soft tissue heel defect with erosion down to the cortical bone consistent with underlying osteomyelitis. LABORATORY DATA: White count 6.5, hemoglobin 9.2, albumin 1.8. IMPRESSION: 1. Infected right heel decubitus ulcer, which is unstageable with underlying osteomyelitis. 2. Diabetes mellitus. 3. History of peripheral arterial disease with stent placement. 4. Severe protein calorie malnutrition with albumin 1.8. 5. Generalized debility. PLAN: Orthopedics has been consulted to see the patient. At this point in time, it is a question of whether they possibly do a partial calcanectomy or the patient is going to require another BKA. The patient is understanding of the situation. Continue IV antibiotics as well as maximize patient's oral protein supplementation for healing. We will consult Physical and Occupational Therapy for strengthening. We are going to order the patient a low air loss mattress, [address] [address] CONSULTATION Name: SUJIT BARROS Room #: 460-P ADM IN M.R.#: [id number] Admission: 02/09/18 Attend Phys: Viet Vargas MD Discharge: Date of : 51 Report #: [id number] given his generalized debility having turned every 2 hours. We will use heel protection on the right heel, pending surgical intervention. <ELECTRONICALLY SIGNED> By: Allan Styles MD 02/15/18 0949 0751 1012 Allan Styles MD /nt
--- NOTE | 2018-02-15 13:05 | NUR ---
CM FOLLOWED UP WIHT PT THIS AM AND INDICATED THAT [facility] HAD INDICATED THEY WOULDN'T BE ABLE TO ACCEPT PT HE INDICATED HE PLANNED TO DISCHARGE TO A FACILITY. PT INDICATED HIS PLAN IS TO GO STAY WITH HIS SON ONCE HE IS ABLE. PT INDIATED HIS SON'S HOME WOULD BE ABLE TO ACCOMIDATE A WC IF PT WAS TO DISCHARGE AT WC LEVEL. CM NOTIFIED DEANNA LIAAVE PORTILLO AND SHE WAS GOING TO REACH OUT TO PT' SON AND LET CM KNOW IF THEY ARE ABLE TO ACCEPT.
--- NOTE | 2018-02-15 15:19 | NUR ---
ASSUMED CARE AT 0700. AXOX4. CALLS APPROPRIATELY. S/P R BKA. DRESSING CHANGED PER MD ORDER THIS AM. PAIN MANAGED WITH IV AND PO MEDS. WORKED WITH THERAPY AND ABLE TO TOLERATE ABOUT 2HRS OF WC TIME. STILL ON ISOLATION FOR MRSA NON RESPIRATORY. NO S/S ACUTE DISTRESS NOTED OR REPORTED AT THIS TIME. WILL CONT TO MONITOR FOR ANY CHANGES IN CONDITION.
--- NOTE | 2018-02-15 15:19 | NUR ---
WOUND FOLLOW UP: PT. WAS SEEN TODAY BY DR. MARI AND MYSELF. PT. SURGICAL INCSION IS STABLE AT THIS TIME. RECOMMENDATIONS: CONTINUE WITH CURRENT PLAN OF CARE. PT. AND STAFF NURSE WERE INSTRUCTED ON PLAN OF CARE.
[2018-02-15 16:55] VITALS: BP 134/68
[2018-02-15 20:09] VITALS: BP 100/40
[2018-02-16 03:15] VITALS: BP 103/47
[2018-02-16 09:07] VITALS: BP 124/64
[2018-02-16] MEDS ORDERED: GABAPENTIN 100100 MG PO (12:03)
[2018-02-16] MEDS ORDERED: ENOXAPARIN40 MG/0.1 SUBQ (12:03)
[2018-02-16] MEDS ORDERED: PHENERGAN 25 MG25 M1 PO (12:03)
[2018-02-16] MEDS ORDERED: COLACE 100 MG100 MG PO (12:03)
[2018-02-16] MEDS ORDERED: REMERON 30 MG T30 M1 PO (12:03)
[2018-02-16] MEDS ORDERED: CARVEDILOL12.5 MG PO (12:03)
[2018-02-16] MEDS ORDERED: DURAGESIC1 EAC4 TRANSDERM (12:03)
[2018-02-16] MEDS ORDERED: TRAMADOL 50 MG50 MG PO (12:03)
--- NOTE | 2018-02-16 14:10 | NUR ---
WOUND FOLLOW UP: PT. WAS SEEN TODAY BY DR. MARI AND MYSELF. PT. SURGICAL INCSION IS HEALING WELL. NO SIGNS OR SYMPTOMS OF INFECTION ARE NOTED. RECOMMENDATIONS: CONTINUE WITH CURRENT PLAN OF CARE. PT. AND STAFF NURSE WERE INSTRUCTED ON PLAN OF CARE.
--- NOTE | 2018-02-16 15:08 | NUR ---
dp faxed referral to [facility], patient likely dc today for readmission to their facility. ALEXANDRA sent message to Sana/jessica advising her to expect incoming fax.
--- NOTE | 2018-02-16 15:15 | NUR ---
CARE TEAM INDICATED PT IS MEDICALLY STABLE TO [facility] FOR POST ACUTE CARE STAY THIS DAY. INFO HAS BEEN SENT TO [facility] FOR THEM TO SUBMIT FOR AUTH. AWAITING AUTH. IT WOULD BE THE HOPE THAT PT WILL BE ABLE TO REHAB AT [facility] THEN POSSIBLY FOR TO [facility] TO PARTICIPATE IN THIR AMPUTEE PROGRAM. CHART COPY ORDERED. CM TO FOLLOW INDICATED WITH DC PLANNING.
[2018-02-16 16:04] VITALS: BP 116/57
--- NOTE | 2018-02-16 16:09 | PATH ---
[facility] [address] [place] [address] PATHOLOGY RPT PROCEDURE Name: XENIASamiSUJIT LA Room #: 460-P ADM IN M.R.#: [id number] Admission: 02/09/18 Date of : 51 Discharge: Report #: [id number] Path Case #: [id number] [facility] Accession Number: [id number] . 01 Material submitted: . RIGHT BELOW KNEE AMPUTATION . 01 Clinical history: . Osteomyelitis, nonhealing wound right heel. . 02 Diagnosis: Leg, right, below knee amputation: - Ulceration, gangrenous necrosis and marked acute inflammation extending into underlying bone. - Vessels (anterior and posterior tibial) showing luminal narrowing by atherosclerosis. - Bone margins viable and unremarkable. - Skin margin viable and unremarkable. . (IUV:mml; 02/16/2018) QLM/02/16/2018 . 02 Electronically signed: . Maricruz Marquez MD, Pathologist NPI- [id number] . 01 Gross description: . Received fresh labeled "Sujit Barros, right below knee amputation" is a right below knee amputation specimen which consists of the distal half of the lower leg (28.4 x 9.5 x 7.4 cm), and the foot (25.0 x 11.5 x 10.5 cm). The proximal margin is smooth and consistent with a surgical resection margin. There are five intact toes with yellow-wei thickened nails present. The heel displays a wei-archibald ulcerated lesion measuring 6.2 x 6.2 x 0.1 cm. The lesion is located 11.0 cm from the closest skin and soft tissue resection margin and 23.0 cm from the bone margin. The lesion grossly involves the underlying bone. The anterior and posterior tibial arteries are identified at the resection margin and have focal areas of calcification and possible stenosis. Senior Software Tester sections are submitted as follows: A1 closest skin and soft tissue resection margin A2-A3 tibia and fibula bone margins (decalcified) A4 anterior and posterior tibial arteries at resection margin (decalcified) A5-A6 human resources hr representative lesion A7 bone underlying lesion (decalcified) ([facility] [place]; 02/13/2018) SYC/SYC . [address] [place] [address] PATHOLOGY RPT PROCEDURE Name: SUJIT BARROS LA Room #: 460-P [facility] IN M.R.#: [id number] Admission: 02/09/18 Date of : 51 Discharge: Report #: [id number] Path Case #: [id number] Pathologist provided ICD-10: I70.239, I70.261 . 02 CPT . 942922, [id number] Specimen Comment: A courtesy copy of this report has been sent to Specimen Comment: [phone], , . Specimen Comment: Report sent to ,DR ESTRADA / DR MILLIGAN Performed at: [address], [place] [id number] MD Francesco Vilchis MD Phone: [phone] Performed at: [address] [id number] MD Maricruz Marquez MD Phone: [phone]
[2018-02-16 19:26] VITALS: BP 88/32
--- NOTE | 2018-02-17 05:49 | NUR ---
Pt. rested quietly at intervals during the night when checked on during frequent rounds. He did c/o pain to his right lower extremity and pain meds given (see emar) with some relief noted. Dressing to his right stump is dry and intact. Bed alarm is on.
[2018-02-17 07:40] VITALS: BP 106/61
--- NOTE | 2018-02-17 15:20 | NUR ---
WOUND FOLLOW UP: PT. WAS SEEN TODAY BY DR. MARI AND MYSELF. PT. WOUNDS ARE STABLE AT THIS TIME. RECOMMENDATIONS: CONTINUE WITH CURRENT PLAN OF CARE. PT. AND STAFF NURSE WERE INSTRUCTED ON PLAN OF CARE.
--- NOTE | 2018-02-17 16:51 | NUR ---
CM FOLLOWED UP WITH FACILITY LIAISON THIS AM AND WE ARE STILL AWAITING AUTH FOR PT TO [facility].
[2018-02-17 16:54] VITALS: BP 111/55
[2018-02-17 19:26] VITALS: BP 99/49
--- NOTE | 2018-02-17 19:37 | NUR ---
Pt stable through out the shift. Wound monitires do discharges and dressing intact. Pt complained of pain on his back and buttocks, repostioned pt every 2 hours. Pt was able to sit at the side of the bed which partially relieved him of his back pain. Still awaiting dc to facility.
--- NOTE | 2018-02-18 02:27 | NUR ---
Pt. rested quietly at intervals during the shift when checked on during frequent rounds. He did c/o right lower extremity pain and was given ivp pain meds (see emar) with some relief noted. He also had a moderate amount of emesis and was given zofran iv (see emar) with relief noted. Dressing to right stum is dry and intact.
[2018-02-18 04:20] VITALS: BP 116/55
[2018-02-18 08:00] VITALS: BP 117/59
--- NOTE | 2018-02-18 13:37 | NUR ---
WOUND FOLLOW UP: PT. WAS SEEN TODAY BY DR. MARI AND MYSELF. DRESSING IS C/D/I AT THIS TIME. RECOMMENDATIONS: CONTINUE WITH CURRENT PLAN OF CARE. PT. AND STAFF NURSE WERE INSTRUCTED ON PLAN OF CARE.
--- NOTE | 2018-02-18 14:06 | NUR ---
CURRENT OT REPORT FAXED TO [facility], FOR INSURANCE AUTH PROCESS. UNIT CM/SW AWARE.
--- NOTE | 2018-02-18 14:38 | NUR ---
[facility] LIAISON WITH [facility] INDICATED THAT INSURANCE REQUESTED MORE DETAILED OT NOTE WITH TRANSFER AND MORE MODALITY DOCUMENTED. OT SAW PT ENTERED NEW NOTE AND IT WAS SENT TO [facility] FOR SUBMISSION TO INSURANCE.
[2018-02-18 17:09] VITALS: BP 120/59
--- NOTE | 2018-02-18 17:27 | NUR ---
Pt stable through out the shift, no complaints of pain was verbalized. Pt sits up at the edge of the bed when he has his meals. Pt was turned every 2 hours. Wound dressings changed. Auth has been grantged for pt to return to facility awaiting details from CM
--- NOTE | 2018-02-21 09:14 | O ---
[facility] [place] [address] OPERATIVE REPORT Name: SUJIT BARROS Room #: 460-P [facility] IN M.R.#: [id number] Admission: 02/09/18 Attend Phys: Viet Vargas MD Discharge: 02/18/18 Date of : 51 Report #: [id number] THIS REPORT FOR: //name// CC: Freddy Vargas DATE OF SERVICE: 02/11/2018 PREOPERATIVE DIAGNOSIS: Right calcaneal osteomyelitis. POSTOPERATIVE DIAGNOSIS: Right calcaneal osteomyelitis. PROCEDURE: Right below knee amputation. SURGEON: Buster Patten MD PROJECT SCHEDULER: Leydi Holcomb PA-C. INDICATIONS FOR ASSISTANCE: Throughout the case, extensive retraction and manipulation of the leg was required. This was afforded to me by my casting assistant. ANESTHESIA: General. TOURNIQUET TIME: 19 minutes. ESTIMATED BLOOD LOSS: 50 mL. COMPLICATIONS: None. SPECIMENS: Right foot was sent to pathology. CONDITION UPON LEAVING THE OPERATING ROOM: Stable. INDICATION FOR PROCEDURE: The patient is a 62-year-old gentleman who has right calcaneal osteomyelitis. He has been on IV antibiotics for this. He has a history of diabetes as well as peripheral vascular disease. He had failed wound and conservative treatment for this and after discussion with him, he elected for right below knee amputation. DESCRIPTION OF PROCEDURE: Risks, benefits, alternatives, complications were discussed in detail with the patient, but not limited to risk of anesthesia, risk of damage to nerves, arteries and blood vessels, risk for infection and need for higher level amputation. Informed consent was obtained from the patient. The right lower extremity was appropriately marked in the preoperative holding area. The patient was already on IV antibiotics. He was brought to the operating room and placed in the supine position on the operating room table. [address] [address] OPERATIVE REPORT Name: SUJIT COCHRAN LA Room #: 460-P [facility] IN Ishan#: [id number] Admission: 02/09/18 Attend Phys: Viet Vargas MD Discharge: 02/18/18 Date of : 51 Report #: [id number] General anesthesia was induced without complication. Tourniquet was placed on the right thigh. Right lower extremity was prepped and draped in normal sterile fashion. Timeout was performed properly identifying the patient and procedure as well as the instrumentation. All in the operating room were in agreement. Right lower extremity was elevated. Tourniquet inflated. Tourniquet time was 19 minutes. A standard below-knee amputation incision was then marked on the skin with a posterior flap and incision was made with a 10 blade through the skin. Dissection was taken through the musculature with Bovie cautery down to the tibia. Periosteum was dissected proximally and the tibial cut was made. The anterior portion of the tibia was beveled with a saw. The fibula was transected 1 cm proximal to the resection level of the tibia and continued dissection was made with the Bovie cautery through the musculature. The leg was then amputated using the with Bovie cautery. The tibial nerve was identified and dissected out. This was pulled taut and cut and transected horizontally with a fresh 10 blade and allowed to retract. The tibial artery and vein were identified, dissected out and tied off with 0 silk suture. After this, the tourniquet was deflated and hemostasis was obtained with Bovie cautery. The deep posterior musculature was removed in order to create space for the posterior flap. The posterior fascia was then sewn to the anterior fascia with 0 Vicryl. A deep drain was placed. Skin was closed with 2-0 Vicryl and skin valente. Soft dressing of Adaptic, 4 x 4, Webril, and Kevon wrap were applied. The patient tolerated this procedure well and went to the recovery room under care of Anesthesia postoperatively. <ELECTRONICALLY SIGNED> By: Buster Patten MD 02/21/18 0914 1425 1443 Buster Patten MD /nt
--- NOTE | 2018-02-21 09:14 | HC ---
[facility] [place] [address] CONSULTATION Name: SUJIT BARROS Room #: 460-P [facility] IN M.R.#: [id number] Admission: 02/09/18 Attend Phys: Viet Vargas MD Discharge: 02/18/18 Date of : 51 Report #: [id number] THIS REPORT FOR: //name// CC: Freddy Vargas DATE OF SERVICE: 02/11/2018 REASON FOR CONSULTATION: Right calcaneal osteomyelitis. HISTORY OF PRESENT ILLNESS: The patient is a 62-year-old gentleman with diabetes as well as severe peripheral vascular disease. He has had a calcaneal ulcer that has been treated conservatively without success. He was brought to the hospital for admission and possible below-knee amputation. CT scan was performed showing to have osteomyelitis of his calcaneus. PAST MEDICAL HISTORY, CURRENT MEDICATIONS, ALLERGIES AND SURGICAL HISTORY: Have been reviewed. PHYSICAL EXAMINATION: Right lower extremity shows him to have a large unstageable decubitus ulcer over his calcaneus with exposed tissue and drainage. No other signs of ulceration. CT has been reviewed and showed to have calcaneal osteomyelitis. ASSESSMENT: Right calcaneal osteomyelitis with underlying diabetes and peripheral vascular disease. PLAN: Discussion was held with the patient regarding treatment options. It is clear that he has failed conservative management for this and given his overall medical comorbidities, the recommendation is for below-knee amputation. He has understanding of this and wished to proceed. We will proceed with right below-knee amputation this afternoon. Thank you for allowing us to participate in the care of the patient. <ELECTRONICALLY SIGNED> By: Buster Patten MD 02/21/18 0914 [id number] Buster Patten MD /nt
== END 2018-02-18 19:45 | DRG 616 ==
LOC: ER 11:09 → EROBS 14:24 → 4W 14:24
PROVIDERS: Internal Medicine Infectious Disease; Nurse Practitioner; Nurse Practitioner Family; Orthopaedic Surgery; ADMIT Internal Medicine
PROC: 0Y6H0Z3 Detachment at Right Lower Leg, Low, Open Approach (ICD-10-PCS; principal; 2018-02-11)
DX: E11.69 Type 2 diabetes mellitus with other specified complication (principal); L89.614 Pressure ulcer of right heel, stage 4; E43 Unspecified severe protein-calorie malnutrition; M86.8X7 Other osteomyelitis, ankle and foot; G93.40 Encephalopathy, unspecified; I69.354 Hemiplegia and hemiparesis following cerebral infarction affecting left non-dominant side; E11.51 Type 2 diabetes mellitus with diabetic peripheral angiopathy without gangrene; L89.619 Pressure ulcer of right heel, unspecified stage; E11.42 Type 2 diabetes mellitus with diabetic polyneuropathy; D63.8 Anemia in other chronic diseases classified elsewhere; E78.5 Hyperlipidemia, unspecified; I25.10 Atherosclerotic heart disease of native coronary artery without angina pectoris; M62.84 Sarcopenia; E53.8 Deficiency of other specified B group vitamins; E83.42 Hypomagnesemia; F32.9 Major depressive disorder, single episode, unspecified; F43.20 Adjustment disorder, unspecified; F39 Unspecified mood [affective] disorder; Z95.1 Presence of aortocoronary bypass graft; Z95.5 Presence of coronary angioplasty implant and graft; Z79.4 Long term (current) use of insulin; Z88.6 Allergy status to analgesic agent; Z68.29 Body mass index [BMI] 29.0-29.9, adult; Z89.512 Acquired absence of left leg below knee
CPT/HCPCS: 10047; 50010; 50101; 50386; 51412; 53000; 56524; 56525; 56528; 57091; 62110; 62900; 70005